=== PATIENT | female | born 1985 | race Caucasian/White ===

== ENCOUNTER → 2016-10-09 | Outpatient (REF) | payer BC | LOC: M LAB REF 12:46 | PROVIDERS: ATTEND Physician Assistant Medical | DX: N75.0 Cyst of Bartholin's gland (principal) ==

== ENCOUNTER → 2016-11-14 | Outpatient (REF) | payer BC | LOC: M SFHCWAGY 14:35 | PROVIDERS: ATTEND Nurse Practitioner Family | DX: Z12.4 Encounter for screening for malignant neoplasm of cervix (principal) ==

== ENCOUNTER → 2016-11-21 | Outpatient (CLI) | payer BC ==
--- NOTE | 2016-11-21 12:41 | REP ---
PELVIC SONOGRAPHY: HISTORY: Abnormal menstrual bleeding. Positive family history of malignancy. FINDINGS: Uterine dimensions are 8.7 x 3.5 x 4.9 cm. Endometrial echo is 1.3 cm thick and centrally placed. No focal uterine mass is seen. Normal ovaries are seen bilaterally. Right ovary measures 2.8 x 2.2 x 2.9 cm. Left ovary measures 2.9 x 1.9 x 2.9 cm. Doppler flow is normal in both ovaries. Resistive indices are 0.48 and 0.39 on the right and left, respectively. IMPRESSION: Normal pelvic sonography. Signed by Pankaj Muñiz MD 11/21/2016 04:46 P
== END ==
LOC: M RAD 09:48
PROVIDERS: ATTEND Nurse Practitioner Family
DX: N92.0 Excessive and frequent menstruation with regular cycle (principal); N94.6 Dysmenorrhea, unspecified

== ENCOUNTER → 2016-12-13 | Outpatient (REF) | payer BC | LOC: M LAB REF 20:24 | PROVIDERS: ATTEND Physician Assistant | DX: J02.9 Acute pharyngitis, unspecified (principal) ==

== ENCOUNTER 2017-01-07 10:09 | Emergency (ER) | payer OTHER, BC ==
[~2017-01-07] VITALS: Ht 160 cm; Wt 70.3 kg
[2017-01-07 10:47] VITALS: BP 162/100
--- NOTE | 2017-01-07 11:56 | REP ---
Pain after trauma. COMPARISON: 11/05/2009 FINDINGS: The joint spaces are symmetric and relatively well maintained. There is no evidence of acute fracture or destructive osseous lesion. IMPRESSION: Negative. The plantar calcaneal heel spur seen previously has gotten larger and three is a newly developed retrocalcaneal heel spur. Signed by Gabe Stoner DO 01/07/2017 12:04 P
== END 2017-01-07 12:04 | disposition home or self-care (01) ==
LOC: M ED 10:44
DX: S93.602A Unspecified sprain of left foot, initial encounter (principal); W19.XXXA Unspecified fall, initial encounter; Y92.89 Other specified places as the place of occurrence of the external cause; Y93.89 Activity, other specified; Y99.0 Civilian activity done for income or pay; G43.909 Migraine, unspecified, not intractable, without status migrainosus; Z88.5 Allergy status to narcotic agent; Z88.8 Allergy status to other drugs, medicaments and biological substances; Z91.040 Latex allergy status; L23.89 Allergic contact dermatitis due to other agents; F17.210 Nicotine dependence, cigarettes, uncomplicated

== ENCOUNTER 2017-04-20 15:43 | Emergency (ER) | payer BC, OTHER ==
[~2017-04-20] VITALS: Ht 160 cm; Wt 81.7 kg
[2017-04-20 16:27] LABS: BASO % 0.5 % (0.0-1.0); EOS # 0.2 K/mm3 (0.0-0.50); EOS % 2.3 % (0.0-3.0); LARGE UNSTAINED CELL # 0.1 K/mm3 (0.0-0.4); LARGE UNSTAINED CELL % 1.1 % (0.0-4.0); LYMPH # 2.8 K/mm3 (1.5-4.5); LYMPH % 25.7 % (24.0-44.0); MEAN CORPUSCULAR HEMOGLOBIN 35.9 pg (27.0-33.0); MEAN CORPUSCULAR HGB CONC 34.6 g/dl (32.0-36.5); MEAN CORPUSCULAR VOLUME 103.6 fl (80.0-96.0); MONO # 0.6 K/mm3 (0.0-0.8); MONO % 5.9 % (0.0-5.0); NEUTROPHILS # 6.8 K/mm3 (1.8-7.7); NEUTROPHILS % 64.4 % (36.0-66.0); PLATELET COUNT, AUTOMATED 230 k/mm3 (150-450); RED CELL DISTRIBUTION WIDTH 14.1 % (11.5-14.5); WHITE BLOOD COUNT 10.6 K/mm3 (4.0-10.0)
[2017-04-20 16:42] LABS: ANION GAP 8 MEQ/L (8-16); BLOOD UREA NITROGEN 14 MG/DL (7-18); CALCIUM LEVEL 8.9 MG/DL (8.5-10.1); CARBON DIOXIDE LEVEL 27 MEQ/L (21-32); CHLORIDE LEVEL 105 MEQ/L (98-107); CREATININE FOR GFR 0.81 MG/DL (0.55-1.02); GLOMERULAR FILTRATION RATE > 60.0 (>60); GLUCOSE, FASTING 86 MG/DL (70-105); POTASSIUM SERUM 3.9 MEQ/L (3.5-5.1); SODIUM LEVEL 140 MEQ/L (136-145)
[2017-04-20] MEDS ORDERED: hydrALAZINE INJ 20 MG/ML VIAL IV ONE (17:00)
[2017-04-20 17:06] VITALS: BP 166/90
--- NOTE | 2017-04-20 18:04 | REP ---
Chest, PA and lateral: 04/20/2047. Comparison: 01/18/2015. Clinical history: Hypertension, chest pressure. Findings: Two-view show the lung rivero well inflated without infiltrate, effusion, atelectasis or mass. Heart, mediastinal, and hilar contours unremarkable. The aorta and airway intact. Bony thorax shows no focal lesion. There is no free air under the diaphragm. Impression: 1. No acute cardiopulmonary change. Signed by Landon Varela MD 04/20/2017 09:26 P
--- NOTE | 2017-04-20 18:44 | ECGEPIP ---
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
[2017-04-20] MEDS ORDERED: HYDR25TAB PO (18:59)
[2017-04-20 19:05] VITALS: BP 170/97
== END 2017-04-20 19:13 | disposition home or self-care (01) ==
LOC: M ED 15:43
DX: I10 Essential (primary) hypertension (principal); Z72.0 Tobacco use

== ENCOUNTER → 2017-05-20 | Outpatient (REF) | payer BC ==
[~2017-05-20] MED LIST: HYDR25TAB PO
== END ==
LOC: M SFHCCLAY 06:15
PROVIDERS: ATTEND Nurse Practitioner Family
DX: R19.7 Diarrhea, unspecified (principal)

== ENCOUNTER → 2017-05-28 | Outpatient (REF) | payer BC ==
[2017-05-28 14:23] LABS: ANION GAP 9 MEQ/L (8-16); BLOOD UREA NITROGEN 10 MG/DL (7-18); CALCIUM LEVEL 8.8 MG/DL (8.5-10.1); CARBON DIOXIDE LEVEL 30 MEQ/L (21-32); CHLORIDE LEVEL 101 MEQ/L (98-107); CHOLESTEROL LEVEL 187 MG/DL (<200); CREATININE FOR GFR 0.68 MG/DL (0.55-1.02); GLOMERULAR FILTRATION RATE > 60.0 (>60); GLUCOSE, FASTING 106 MG/DL (70-105); POTASSIUM SERUM 3.2 MEQ/L (3.5-5.1); SODIUM LEVEL 140 MEQ/L (136-145); TRIGLYCERIDES LEVEL 73 MG/DL (<150)
== END ==
LOC: M SFHCCLAY 08:47
PROVIDERS: ATTEND Nurse Practitioner Family
DX: I10 Essential (primary) hypertension (principal)

== ENCOUNTER → 2017-05-31 | Outpatient (REF) | payer BC | LOC: M SFHCCLAY 08:58 | PROVIDERS: ATTEND Nurse Practitioner Family | DX: R19.7 Diarrhea, unspecified (principal) ==

== ENCOUNTER → 2017-06-12 | Outpatient (CLI) | payer BC | LOC: M LAB 06:16 | PROVIDERS: ATTEND Nurse Practitioner Family | DX: I10 Essential (primary) hypertension (principal) ==

== ENCOUNTER → 2017-11-19 | Outpatient (CLI) | payer BC ==
[2017-11-19 08:28] LABS: CHOLESTEROL LEVEL 207 MG/DL (<200); CHOLESTEROL RISK RATIO 2.957 (<5); HDL CHOLESTEROL 70 MG/DL (>40); LDL CHOLESTEROL 120.4 MG/DL (<100); NON-HDL-C 137 MG/DL; TRIGLYCERIDES LEVEL 83 MG/DL (<150)
[2017-11-19 09:46] LABS: TOTAL 25(OH) VITAMIN D 38.1 NG/ML (30.0-100.0)
== END ==
LOC: M LAB 07:29
DX: E78.5 Hyperlipidemia, unspecified (principal)

== ENCOUNTER 2017-11-24 08:31 | Emergency (ER) | payer BC ==
[2017-11-24] MEDS: KETOROLAC 30 MG/ML VIAL (J1885) IV (09:39)
[2017-11-24 09:45] LABS: BASO % 0.3 % (0.0-1.0); EOS # 0.1 10^3/uL (0.0-0.50); EOS % 0.9 % (0.0-3.0); HEMATOCRIT 36.1 % (36.0-47.0); HEMOGLOBIN 12.7 g/dl (12.0-16.0); IMMATURE GRANULOCYTE % 0.4 % (0-3.0); LYMPH # 1.4 10^3/uL (1.5-4.5); LYMPH % 11.7 % (24.0-44.0); MEAN CORPUSCULAR HEMOGLOBIN 33.8 pg (27.0-33.0); MEAN CORPUSCULAR HGB CONC 35.2 g/dl (32.0-36.5); MONO # 0.6 10^3/uL (0.0-0.8); MONO % 4.6 % (0.0-5.0); NEUTROPHILS # 9.8 10^3/uL (1.8-7.7); NEUTROPHILS % 82.1 % (36.0-66.0); PLATELET COUNT, AUTOMATED 269 10^3/uL (150-450); RED BLOOD COUNT 3.76 10^6/uL (4.00-5.40); RED CELL DISTRIBUTION WIDTH 12.4 % (11.5-14.5); WHITE BLOOD COUNT 11.9 10^3/uL (4.0-10.0)
[2017-11-24 10:01] LABS: ALBUMIN 3.6 GM/DL (3.2-5.2); ALBUMIN/GLOBULIN RATIO 1.16 (1.00-1.93); ALKALINE PHOSPHATASE 41 U/L (45-117); ALT/SGPT 22 U/L (12-78); ANION GAP 5 MEQ/L (8-16); AST/SGOT 15 U/L (7-37); BILIRUBIN,TOTAL 0.5 MG/DL (0.2-1.0); BLOOD UREA NITROGEN 12 MG/DL (7-18); CALCIUM LEVEL 8.6 MG/DL (8.5-10.1); CARBON DIOXIDE LEVEL 28 MEQ/L (21-32); CHLORIDE LEVEL 110 MEQ/L (98-107); CREATININE FOR GFR 0.65 MG/DL (0.55-1.30); GLOMERULAR FILTRATION RATE > 60.0 (>60); GLUCOSE, FASTING 105 MG/DL (70-100); LIPASE 136 U/L (73-393); POTASSIUM SERUM 3.7 MEQ/L (3.5-5.1); SODIUM LEVEL 143 MEQ/L (136-145); TOTAL PROTEIN 6.7 GM/DL (6.4-8.2)
[2017-11-24 10:50] LABS: KETONE, URINE AUTO RFX NEGATIVE (NEGATIVE); LEUKOCYTE ESTERASE UR AUTO RFX NEGATIVE (NEGATIVE); MUCUS, URINE RFX SMALL (NEGATIVE); NITRITE, URINE AUTO RFX NEGATIVE (NEGATIVE); RBC, URINE AUTO RFX 136 /HPF (0-3); SPECIFIC GRAVITY UR AUTO RFX 1.017 (1.002-1.035); SQUAM EPITHELIAL CELL UR AURFX 3 /HPF (0-6); WBC, URINE AUTO RFX 2 /HPF (0-3)
== END 2017-11-24 10:52 | disposition home or self-care (01) ==
LOC: M ED 08:31
DX: R10.9 Unspecified abdominal pain (principal); I10 Essential (primary) hypertension; Z88.8 Allergy status to other drugs, medicaments and biological substances; Z88.5 Allergy status to narcotic agent; Z91.040 Latex allergy status; Z91.048 Other nonmedicinal substance allergy status; Z84.1 Family history of disorders of kidney and ureter; Z98.890 Other specified postprocedural states; Z86.69 Personal history of other diseases of the nervous system and sense organs
CPT/HCPCS: J1885

== ENCOUNTER → 2017-11-27 | Outpatient (REF) | payer BC ==
[2017-12-02 14:16] LABS: HPV HYBRID CAPTURE II Negative (Negative)
== END ==
LOC: M SFHCWAGY 11:14
DX: Z12.4 Encounter for screening for malignant neoplasm of cervix (principal)
CPT/HCPCS: G0123

== ENCOUNTER → 2017-12-09 | Outpatient (REF) | payer BC | LOC: M SFHCCLAY 16:34 | DX: R19.7 Diarrhea, unspecified (principal) | CPT/HCPCS: 87507 ==

== ENCOUNTER → 2017-12-24 | Outpatient (CLI) | payer BC ==
[2017-12-26 08:06] LABS: G6PD2 4.16 x10E6/uL (3.77-5.28); G6PD3 258 (146-376)
== END ==
LOC: M LAB 12:10
DX: M05.79 Rheumatoid arthritis with rheumatoid factor of multiple sites without organ or systems involvement (principal)
CPT/HCPCS: 82955

== ENCOUNTER 2018-02-08 12:56 | Emergency (ER) | payer BC ==
[2018-02-08 13:49] LABS: BASO # 0.1 10^3/uL (0.0-0.2); BASO % 0.6 % (0.0-1.0); EOS # 0.2 10^3/uL (0.0-0.50); HEMATOCRIT 40.7 % (36.0-47.0); HEMOGLOBIN 14.4 g/dl (12.0-15.5); IMMATURE GRANULOCYTE % 0.2 % (0-3.0); LYMPH # 3.3 10^3/uL (1.5-4.5); LYMPH % 27.8 % (24.0-44.0); MEAN CORPUSCULAR HEMOGLOBIN 34.5 pg (27.0-33.0); MEAN CORPUSCULAR HGB CONC 35.4 g/dl (32.0-36.5); MEAN CORPUSCULAR VOLUME 97.6 fl (80.0-96.0); MONO # 0.8 10^3/uL (0.0-0.8); MONO % 6.9 % (0.0-5.0); NEUTROPHILS # 7.5 10^3/uL (1.8-7.7); NEUTROPHILS % 62.5 % (36.0-66.0); PLATELET COUNT, AUTOMATED 260 10^3/uL (150-450); RED BLOOD COUNT 4.17 10^6/uL (4.00-5.40); RED CELL DISTRIBUTION WIDTH 12.8 % (11.5-14.5); WHITE BLOOD COUNT 11.9 10^3/uL (4.0-10.0)
[2018-02-08 14:00] LABS: CONTROL LINE UCG INT CTR LINE PRESENT; URINE PREG TEST NEGATIVE (NEGATIVE)
[2018-02-08 14:11] LABS: AMORPHOUS SEDIMENT RFX SMALL (NEGATIVE); KETONE, URINE AUTO RFX TRACE mg/dL (NEGATIVE); LEUKOCYTE ESTERASE UR AUTO RFX NEGATIVE (NEGATIVE); MUCUS, URINE RFX LARGE (NEGATIVE); NITRITE, URINE AUTO RFX NEGATIVE (NEGATIVE); RBC, URINE AUTO RFX 5 /HPF (0-3); SQUAM EPITHELIAL CELL UR AURFX 5 /HPF (0-6); WBC, URINE AUTO RFX 0 /HPF (0-3)
[2018-02-08 14:20] LABS: ALBUMIN 4.2 GM/DL (3.2-5.2); ALBUMIN/GLOBULIN RATIO 1.27 (1.00-1.93); ALKALINE PHOSPHATASE 46 U/L (45-117); ALT/SGPT 23 U/L (12-78); AMYLASE 43 U/L (25-115); ANION GAP 8 MEQ/L (8-16); AST/SGOT 14 U/L (7-37); BILIRUBIN,DIRECT 0.2 MG/DL (0.0-0.2); BILIRUBIN,TOTAL 0.6 MG/DL (0.2-1.0); BLOOD UREA NITROGEN 10 MG/DL (7-18); CALCIUM LEVEL 8.7 MG/DL (8.5-10.1); CARBON DIOXIDE LEVEL 27 MEQ/L (21-32); CHLORIDE LEVEL 107 MEQ/L (98-107); CREATININE FOR GFR 0.82 MG/DL (0.55-1.30); GLOMERULAR FILTRATION RATE > 60.0 (>60); GLUCOSE, FASTING 90 MG/DL (70-100); LIPASE 172 U/L (73-393); POTASSIUM SERUM 3.6 MEQ/L (3.5-5.1); SODIUM LEVEL 142 MEQ/L (136-145); TOTAL PROTEIN 7.5 GM/DL (6.4-8.2)
[2018-02-08] MEDS: NS 500 ML IV (16:45)
[2018-02-08] MEDS: KETOROLAC 30 MG/ML VIAL (J1885) IV (16:45)
[2018-02-08] MEDS: ONDANSETRON 4MG/2ML VIAL (J2405) IV (16:46)
== END 2018-02-08 17:47 | disposition home or self-care (01) ==
LOC: M ED 12:56
DX: R10.30 Lower abdominal pain, unspecified (principal); R11.0 Nausea; I10 Essential (primary) hypertension; J45.909 Unspecified asthma, uncomplicated; F33.9 Major depressive disorder, recurrent, unspecified; Z87.442 Personal history of urinary calculi; Z79.899 Other long term (current) drug therapy; Z88.5 Allergy status to narcotic agent; Z91.040 Latex allergy status; Z91.048 Other nonmedicinal substance allergy status; F17.210 Nicotine dependence, cigarettes, uncomplicated
CPT/HCPCS: J2405

== ENCOUNTER 2018-08-09 08:45 | Emergency (ER) | payer BC | END 2018-08-09 10:20 | disposition home or self-care (01) | LOC: M ED 08:45 | DX: I10 Essential (primary) hypertension (principal); J45.909 Unspecified asthma, uncomplicated | CPT/HCPCS: 93005 ==

== ENCOUNTER → 2018-09-06 | Outpatient (CLI) | payer BC ==
[~2018-09-06] MED LIST changes: +BACT800T5 PO; +KETO10TAB PO; +NABU-119 PO; +PYRI1TAB5 PO; +RIZA10TA2 PO; +SULF50TA; +TELM1TAB PO; +VICO5TAB16 PO; +VITAMIN D2; +ZOFR4TAB14 PO
[2018-09-06 07:23] LABS: HEMATOCRIT 39.2 % (36.0-47.0); HEMOGLOBIN 13.9 g/dl (12.0-15.5); MEAN CORPUSCULAR HEMOGLOBIN 34.2 pg (27.0-33.0); MEAN CORPUSCULAR HGB CONC 35.5 g/dl (32.0-36.5); MEAN CORPUSCULAR VOLUME 96.3 fl (80.0-96.0); PLATELET COUNT, AUTOMATED 288 10^3/uL (150-450); RED BLOOD COUNT 4.07 10^6/uL (4.00-5.40); WHITE BLOOD COUNT 10.2 10^3/uL (4.0-10.0)
[2018-09-06 07:54] LABS: ALBUMIN 3.9 GM/DL (3.2-5.2); ALT/SGPT 28 U/L (12-78); BILIRUBIN,TOTAL 0.4 MG/DL (0.2-1.0); BLOOD UREA NITROGEN 7 MG/DL (7-18); CALCIUM LEVEL 8.4 MG/DL (8.5-10.1); CARBON DIOXIDE LEVEL 30 MEQ/L (21-32); CHLORIDE LEVEL 103 MEQ/L (98-107); CHOLESTEROL LEVEL 179 MG/DL (<200); CHOLESTEROL RISK RATIO 1.924 (<5); GLOMERULAR FILTRATION RATE > 60.0 (>60); GLUCOSE, FASTING 106 MG/DL (70-100); HDL CHOLESTEROL 93 MG/DL (>40); LDL CHOLESTEROL 70 MG/DL (<100); NON-HDL-C 86 MG/DL; POTASSIUM SERUM 3.5 MEQ/L (3.5-5.1); SODIUM LEVEL 140 MEQ/L (136-145); TRIGLYCERIDES LEVEL 82 MG/DL (<150)
[2018-09-06 10:52] LABS: TOTAL 25(OH) VITAMIN D 19.4 NG/ML (30.0-100.0)
== END ==
LOC: M LAB 06:29
PROVIDERS: ATTEND Nurse Practitioner Family
DX: I10 Essential (primary) hypertension (principal); E78.5 Hyperlipidemia, unspecified; E55.9 Vitamin D deficiency, unspecified

== ENCOUNTER → 2018-12-08 | Outpatient (REF) | payer BC ==
[2018-12-08 18:04] LABS: INFLUENZA A AMPLIFICATION NEGATIVE (NEGATIVE); INFLUENZA B AMPLIFICATION NEGATIVE (NEGATIVE)
== END ==
LOC: M LAB REF 17:18
PROVIDERS: ATTEND Physician Assistant
DX: J11.1 Influenza due to unidentified influenza virus with other respiratory manifestations (principal)

== ENCOUNTER → 2018-12-29 | Outpatient (CLI) | payer BC ==
[~2018-12-29] MED LIST changes: -VICO5TAB16 PO; +VICO5TAB17 PO
[2018-12-29 12:08] LABS: BASO % 0.3 % (0.0-1.0); EOS # 0.1 10^3/uL (0.0-0.50); EOS % 1.1 % (0.0-3.0); HEMATOCRIT 38.9 % (36.0-47.0); HEMOGLOBIN 13.6 g/dl (12.0-15.5); LYMPH # 2.7 10^3/uL (1.5-4.5); LYMPH % 25.5 % (24.0-44.0); MEAN CORPUSCULAR HEMOGLOBIN 36.5 pg (27.0-33.0); MEAN CORPUSCULAR VOLUME 104.3 fl (80.0-96.0); MONO # 0.7 10^3/uL (0.0-0.8); MONO % 6.8 % (0.0-5.0); NEUTROPHILS % 65.8 % (36.0-66.0); PLATELET COUNT, AUTOMATED 254 10^3/uL (150-450); RED BLOOD COUNT 3.73 10^6/uL (4.00-5.40); WHITE BLOOD COUNT 10.6 10^3/uL (4.0-10.0)
[2018-12-29 12:45] LABS: ALT/SGPT 29 U/L (12-78); C REACTIVE PROTEIN QUANTITATIV < 0.30 MG/DL (0.00-0.30); CREATININE FOR GFR 0.62 MG/DL (0.55-1.30); ERYTHROCYTE SEDIMENTATION RATE 8 mm/hr (0-20); GLOMERULAR FILTRATION RATE > 60.0 (>60)
== END ==
LOC: M LAB 11:38
PROVIDERS: ATTEND Nurse Practitioner
DX: M05.79 Rheumatoid arthritis with rheumatoid factor of multiple sites without organ or systems involvement (principal); Z79.899 Other long term (current) drug therapy

== ENCOUNTER → 2019-01-19 | Outpatient (CLI) | payer BC ==
[2019-01-19 08:52] LABS: BASO # 0.1 10^3/uL (0.0-0.2); BASO % 0.7 % (0.0-1.0); EOS # 0.3 10^3/uL (0.0-0.50); EOS % 3.2 % (0.0-3.0); HEMOGLOBIN 13.6 g/dl (12.0-15.5); LYMPH # 1.7 10^3/uL (1.5-4.5); LYMPH % 19.6 % (24.0-44.0); MEAN CORPUSCULAR HEMOGLOBIN 35.6 pg (27.0-33.0); MEAN CORPUSCULAR HGB CONC 34.9 g/dl (32.0-36.5); MEAN CORPUSCULAR VOLUME 102.1 fl (80.0-96.0); MONO # 0.6 10^3/uL (0.0-0.8); MONO % 6.8 % (0.0-5.0); NEUTROPHILS # 6.1 10^3/uL (1.8-7.7); NEUTROPHILS % 69.2 % (36.0-66.0); PLATELET COUNT, AUTOMATED 288 10^3/uL (150-450); RED BLOOD COUNT 3.82 10^6/uL (4.00-5.40); WHITE BLOOD COUNT 8.7 10^3/uL (4.0-10.0)
[2019-01-19 09:16] LABS: ALT/SGPT 37 U/L (12-78); C REACTIVE PROTEIN QUANTITATIV < 0.30 MG/DL (0.00-0.30); CREATININE FOR GFR 0.68 MG/DL (0.55-1.30); GLOMERULAR FILTRATION RATE > 60.0 (>60)
[2019-01-19 09:59] LABS: ERYTHROCYTE SEDIMENTATION RATE 5 mm/hr (0-20)
== END ==
LOC: M LAB 07:59
PROVIDERS: ATTEND Nurse Practitioner
DX: M05.79 Rheumatoid arthritis with rheumatoid factor of multiple sites without organ or systems involvement (principal); Z79.899 Other long term (current) drug therapy

== ENCOUNTER 2019-02-04 16:01 | Emergency (ER) | payer BC, OTHER ==
[~2019-02-04] VITALS: Ht 160 cm; Wt 72.3 kg
[2019-02-04] MEDS ORDERED: LORA0.5T11 PO (16:14)
[2019-02-04] MEDS ORDERED: AZAT50TA2 PO (16:14)
[2019-02-04 17:32] VITALS: BP 172/99
--- NOTE | 2019-02-05 07:37 | REP ---
Pain after trauma. PRIORS: None. FINDINGS: No acute fracture or destructive osseous lesion. The mortise is intact. Electronically Signed by Gabe Stoner DO 02/05/2019 08:29 A
--- NOTE | 2019-02-05 07:39 | REP ---
Pain after trauma. PRIOR: 11/05/2009. There is a high arch status quo. There is a plantar calcaneal heel spur which has increased in size and there is a newly developed retrocalcaneal heel spur. There is no acute fracture. IMPRESSION: Chronic changes. Electronically Signed by Gabe Stoner DO 02/05/2019 08:29 A
== END 2019-02-04 17:50 | disposition home or self-care (01) ==
LOC: M ED 16:01
DX: S90.32XA Contusion of left foot, initial encounter (principal); S60.212A Contusion of left wrist, initial encounter; W22.8XXA Striking against or struck by other objects, initial encounter; Y92.238 Other place in hospital as the place of occurrence of the external cause; Y93.9 Activity, unspecified; Y99.0 Civilian activity done for income or pay; I10 Essential (primary) hypertension; G43.909 Migraine, unspecified, not intractable, without status migrainosus; J45.909 Unspecified asthma, uncomplicated; M77.32 Calcaneal spur, left foot; Z79.899 Other long term (current) drug therapy; Z91.040 Latex allergy status; Z88.5 Allergy status to narcotic agent; Z88.2 Allergy status to sulfonamides

== ENCOUNTER 2019-02-27 09:06 | Emergency (ER) | payer OTHER, BC ==
[~2019-02-27] VITALS: Ht 160 cm; Wt 73.2 kg
[~2019-02-27 09:06] MED LIST changes: +AZAT50TA2 PO; +LORA0.5T11 PO
[2019-02-27 09:07] VITALS: BP 135/91
== END 2019-02-27 09:48 | disposition home or self-care (01) ==
LOC: M ED 09:06
DX: M65.872 Other synovitis and tenosynovitis, left ankle and foot (principal); I10 Essential (primary) hypertension; G43.909 Migraine, unspecified, not intractable, without status migrainosus; J45.909 Unspecified asthma, uncomplicated; M06.9 Rheumatoid arthritis, unspecified; Z79.899 Other long term (current) drug therapy; Z91.040 Latex allergy status; Z88.5 Allergy status to narcotic agent; Z91.89 Other specified personal risk factors, not elsewhere classified

== ENCOUNTER → 2019-06-20 | Outpatient (CLI) | payer BC ==
[~2019-06-20] MED LIST changes: +LOSA50TA88 PO
[2019-06-20 09:22] LABS: BLOOD UREA NITROGEN 13 MG/DL (7-18); GLOMERULAR FILTRATION RATE > 60.0 (>60)
== END ==
LOC: M LAB 07:56
PROVIDERS: ATTEND Podiatrist Foot & Ankle Surgery
DX: R22.42 Localized swelling, mass and lump, left lower limb (principal)

== ENCOUNTER → 2019-06-22 | Outpatient (CLI) | payer BC ==
[~2019-06-22] MED LIST changes: +PROHANCE 279.3MG/ML 15ML VIAL (A9576) As Ordered ONE
--- NOTE | 2019-06-23 09:48 | REP ---
MRI LEFT FOOT WITH AND WITHOUT CONTRAST: HISTORY: Palpable lump dorsum of midfoot. Area is marked with skin markers. Multiple sequences are obtained in the axial, coronal, and sagittal planes prior to and following the intravenous administration of 14.4 mL ProHance. There is mild marrow edema in the proximal lateral aspect of the medial cuneiform bone. No other abnormal marrow signal is seen in the osseous structures of the left foot. There is no occult fracture. Achilles tendon and plantar tendon demonstrate no abnormal signal. Other tendinous structures including the flexor and extensor tendons appear intact without evidence of significant tenosynovitis. There is mild scattered joint fluid throughout the hindfoot and midfoot joints. At the site of the palpable lump at the dorsum of the foot, dorsal to the cuneiform bones, there is a small amount of fluid between the dorsal surface of the cuneiform bones and the adjacent extensor tendons. There is mild linear enhancement of this area following the intravenous administration of gadolinium. Findings suggesting mild synovitis. There is no cystic or enhancing mass at that location. No other abnormalities are seen. IMPRESSION: At the site of the palpable lump in the dorsal mid foot there is underlying mild fluid along the dorsal surface of the cuneiform bones, primarily the medial cuneiform, with mild linear enhancement in this region suggesting mild synovitis. No discrete mass is seen. There is mild scattered intertarsal joint fluid. There is mild subchondral marrow edema in the base of the medial cuneiform representing early arthritic or stress related changes. Electronically Signed by Cecil Galarza MD 06/23/2019 05:49 P
== END ==
LOC: M RAD 16:43
PROVIDERS: ATTEND Podiatrist Foot & Ankle Surgery
DX: M25.471 Effusion, right ankle (principal)
CPT/HCPCS: 73720; A9576

== ENCOUNTER 2019-06-24 09:42 | Emergency (ER) | payer BC ==
[~2019-06-24] VITALS: Ht 160 cm; Wt 75.3 kg
[~2019-06-24 09:42] MED LIST changes: -LOSA50TA88 PO; -PROHANCE 279.3MG/ML 15ML VIAL (A9576) As Ordered ONE
[2019-06-24 10:25] LABS: BASO # 0.1 10^3/uL (0.0-0.2); BASO % 0.4 % (0.0-1.0); EOS # 0.2 10^3/uL (0.0-0.5); EOS % 1.4 % (0.0-3.0); HEMATOCRIT 41.2 % (36.0-47.0); HEMOGLOBIN 14.7 g/dl (12.0-15.5); LYMPH # 2.1 10^3/uL (1.5-5.0); LYMPH % 18.3 % (24.0-44.0); MEAN CORPUSCULAR HEMOGLOBIN 36.5 pg (27.0-33.0); MEAN CORPUSCULAR HGB CONC 35.7 g/dl (32.0-36.5); MEAN CORPUSCULAR VOLUME 102.2 fl (80.0-96.0); MONO # 0.6 10^3/uL (0.0-0.8); MONO % 5.2 % (0.0-5.0); NEUTROPHILS # 8.7 10^3/uL (1.5-8.5); NEUTROPHILS % 74.4 % (36.0-66.0); PLATELET COUNT, AUTOMATED 274 10^3/uL (150-450); RED BLOOD COUNT 4.03 10^6/uL (4.00-5.40); WHITE BLOOD COUNT 11.7 10^3/uL (4.0-10.0)
--- NOTE | 2019-06-24 10:38 | REP ---
CHEST, SINGLE VIEW: There is no evidence of acute infiltrate. No pleural effusion is seen. The heart is normal in size. The mediastinal silhouette is unremarkable. The visualized osseous structures are intact. IMPRESSION: No acute pulmonary disease. Electronically Signed by Cecil Galarza MD 06/27/2019 02:47 P
[2019-06-24 10:52] LABS: BLOOD UREA NITROGEN 10 MG/DL (7-18); CARBON DIOXIDE LEVEL 31 MEQ/L (21-32); CHLORIDE LEVEL 105 MEQ/L (98-107); CK-MB VALUE MASS < 1.0 NG/ML (<3.6); CPK CREATINE PHOSPHOKINASE 126 U/L (26-192); CREATININE FOR GFR 0.75 MG/DL (0.55-1.30); GLOMERULAR FILTRATION RATE > 60.0 (>60); GLUCOSE, FASTING 103 MG/DL (70-100); MB/CK RELATIVE INDEX 0.79 (< OR =4); POTASSIUM SERUM 3.6 MEQ/L (3.5-5.1); SODIUM LEVEL 141 MEQ/L (136-145); TROPONIN I 0.02 NG/ML (< 0.10)
[2019-06-24] MEDS ORDERED: LOSA50TA88 PO (14:32)
[2019-06-24 14:43] VITALS: BP 162/103
[2019-06-24] MEDS ORDERED: ACETAMINOPHEN 325 MG TAB PO ONE (14:45)
[2019-06-24] MEDS ORDERED: LOSARTAN 50 MG TAB PO ONE (14:45)
[2019-06-24 16:12] LABS: CK-MB VALUE MASS < 1.0 NG/ML (<3.6); CPK CREATINE PHOSPHOKINASE 122 U/L (26-192); MB/CK RELATIVE INDEX 0.82 (< OR =4); TROPONIN I < 0.02 NG/ML (< 0.10)
[2019-06-24 16:30] VITALS: BP 163/96
--- NOTE | 2019-06-26 07:57 | ECGEPIP ---
[facility] - ED Test Date: 2019-06-24 Pat Name: AYAZ SHI Department: Room: - Gender: Female Hander In: KRISTIAN : 1985 Requested By: Shima Hurtado Order Number: [id number] Reading MD: Shima Hurtado Measurements Intervals [place] Rate: 56 P: -6 [place]: 173 QRS: -21 QRSD: 96 T: -7 QT: 422 QTc: 408 Interpretive Statements SINUS BRADYCARDIA BORDERLINE LEFT AXIS DEVIATION VOLTAGE CRITERIA FOR LVH NSTTW abnormalities COMPARED 08/09/18 Electronically Signed on 06-26-2019 7:57:17 EDT by Shima Hurtado
--- NOTE | 2019-06-26 08:01 | ECGEPIP ---
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
== END 2019-06-24 17:08 | disposition home or self-care (01) ==
LOC: M ED 09:42
DX: R00.1 Bradycardia, unspecified (principal); I10 Essential (primary) hypertension; M06.9 Rheumatoid arthritis, unspecified; F41.0 Panic disorder [episodic paroxysmal anxiety]; F17.200 Nicotine dependence, unspecified, uncomplicated; Z82.49 Family history of ischemic heart disease and other diseases of the circulatory system; Z80.9 Family history of malignant neoplasm, unspecified; Z79.899 Other long term (current) drug therapy; Z88.2 Allergy status to sulfonamides; Z88.5 Allergy status to narcotic agent; Z88.8 Allergy status to other drugs, medicaments and biological substances; Z91.89 Other specified personal risk factors, not elsewhere classified; Z91.040 Latex allergy status

== ENCOUNTER 2019-07-22 07:54 | Outpatient (CLI) | payer BC ==
[~2019-07-22] VITALS: Ht 160 cm; Wt 73.5 kg
[~2019-07-22 07:54] MED LIST changes: +LOSA50TA88 PO
[2019-07-22 14:00] VITALS: BP 141/88
[2019-07-22] MEDS ORDERED: CHOL100029 PO (14:27)
[2019-07-22] MEDS ORDERED: INFLIXIMAB BIOSIMILAR 300 MG in NS 220 ML IV ONE (15:00)
[2019-07-22] MEDS ORDERED: NS 1,000 ML IV SCH (15:00)
[2019-07-22] MEDS ORDERED: ACETAMINOPHEN 650MG PO PRIOR TO INFUSION PO ONE (15:00)
[2019-07-22] MEDS ORDERED: FILTER 1.2 MICRON (ADULT TPN/MANNITOL/REMICADE) XX ONE (15:00)
[2019-07-22 17:00] VITALS: BP 136/74
== END 2019-07-22 17:00 | disposition home or self-care (01) ==
LOC: M INFU 07:54
PROVIDERS: ATTEND Nurse Practitioner
DX: M06.9 Rheumatoid arthritis, unspecified (principal); Z88.8 Allergy status to other drugs, medicaments and biological substances; Z88.5 Allergy status to narcotic agent; Z88.2 Allergy status to sulfonamides; Z91.040 Latex allergy status

== ENCOUNTER 2019-08-05 09:23 | Outpatient (CLI) | payer BC ==
[~2019-08-05] VITALS: Ht 160 cm; Wt 73.5 kg
[~2019-08-05 09:23] MED LIST changes: +CHOL100029 PO
[2019-08-05 14:00] VITALS: BP 166/97
[2019-08-05] MEDS ORDERED: INFLIXIMAB BIOSIMILAR 300 MG in NS 220 ML IV ONE (15:00)
[2019-08-05] MEDS ORDERED: FILTER 1.2 MICRON (ADULT TPN/MANNITOL/REMICADE) XX ONE (15:00)
[2019-08-05] MEDS ORDERED: ACETAMINOPHEN 650MG PO PRIOR TO INFUSION PO ONE (15:00)
[2019-08-05] MEDS ORDERED: NS 1,000 ML IV SCH (15:00)
[2019-08-05 16:55] VITALS: BP 128/80
== END 2019-08-05 16:55 | disposition home or self-care (01) ==
LOC: M INFU 09:23
PROVIDERS: ATTEND Nurse Practitioner
DX: M06.9 Rheumatoid arthritis, unspecified (principal); Z88.5 Allergy status to narcotic agent; Z88.6 Allergy status to analgesic agent; Z88.8 Allergy status to other drugs, medicaments and biological substances; Z91.040 Latex allergy status
CPT/HCPCS: 96365; 96366; Q5103

== ENCOUNTER 2019-09-02 11:51 | Outpatient (CLI) | payer BC ==
[~2019-09-02] VITALS: Ht 160 cm; Wt 73.5 kg
[2019-09-02] MEDS ORDERED: ACETAMINOPHEN 650MG PO PRIOR TO INFUSION PO ONE (13:45)
[2019-09-02] MEDS ORDERED: NS 1,000 ML IV SCH (13:45)
[2019-09-02] MEDS ORDERED: INFLIXIMAB BIOSIMILAR 300 MG in NS 220 ML IV ONE (14:00)
[2019-09-02 16:55] VITALS: BP 158/98
== END 2019-09-02 16:55 | disposition home or self-care (01) ==
LOC: M INFU 11:51
PROVIDERS: ATTEND Nurse Practitioner
DX: M06.9 Rheumatoid arthritis, unspecified (principal); Z88.2 Allergy status to sulfonamides; Z88.5 Allergy status to narcotic agent; Z88.8 Allergy status to other drugs, medicaments and biological substances; Z91.040 Latex allergy status
CPT/HCPCS: 96413; 96415; Q5103

== ENCOUNTER 2019-09-05 08:11 | Emergency (ER) | payer OTHER, BC ==
[~2019-09-05] VITALS: Ht 160 cm; Wt 75.6 kg
[2019-09-05] MEDS ORDERED: AMLO5TAB6 (08:21)
[2019-09-05] MEDS ORDERED: FLUORESCEIN OPHTH 1 MG STRIP OD ONE (09:30)
[2019-09-05] MEDS ORDERED: TETRACAINE 0.5% OPHTH SOLN 4ML OD ONE (09:30)
[2019-09-05] MEDS ORDERED: OCUF0.25 OD (09:35)
[2019-09-05 10:10] VITALS: BP 164/113
== END 2019-09-05 10:17 | disposition home or self-care (01) ==
LOC: M ED 08:11
DX: S05.01XA Injury of conjunctiva and corneal abrasion without foreign body, right eye, initial encounter (principal); X58.XXXA Exposure to other specified factors, initial encounter; Y92.239 Unspecified place in hospital as the place of occurrence of the external cause; Y93.9 Activity, unspecified; Y99.0 Civilian activity done for income or pay; I10 Essential (primary) hypertension; G43.909 Migraine, unspecified, not intractable, without status migrainosus; J45.909 Unspecified asthma, uncomplicated; M06.9 Rheumatoid arthritis, unspecified; F32.9 Major depressive disorder, single episode, unspecified; Z79.899 Other long term (current) drug therapy; Z88.2 Allergy status to sulfonamides; Z88.5 Allergy status to narcotic agent; Z91.040 Latex allergy status; Z91.89 Other specified personal risk factors, not elsewhere classified

== ENCOUNTER 2019-10-21 07:51 | Outpatient (CLI) | payer BC ==
[~2019-10-21] VITALS: Ht 160 cm; Wt 75.5 kg
[~2019-10-21 07:51] MED LIST changes: +AMLO5TAB6; -LORA0.5T11 PO; +LORA0.5T5 PO; +OCUF0.25 OD
[2019-10-21] MEDS ORDERED: INFLIXIMAB BIOSIMILAR 300 MG in NS 220 ML IV ONE (11:45)
[2019-10-21] MEDS ORDERED: NS 1,000 ML IV SCH (11:45)
[2019-10-21] MEDS ORDERED: ACETAMINOPHEN 650MG PO PRIOR TO INFUSION PO ONE (11:45)
[2019-10-21 12:35] VITALS: BP 180/120
[2019-10-21 12:51] VITALS: BP 160/120
[2019-10-21 14:04] VITALS: BP 138/102
== END 2019-10-21 15:15 | disposition home or self-care (01) ==
LOC: M INFU 07:51
PROVIDERS: ATTEND Nurse Practitioner
DX: M06.9 Rheumatoid arthritis, unspecified (principal); Z88.2 Allergy status to sulfonamides; Z88.5 Allergy status to narcotic agent; Z91.040 Latex allergy status; Z91.048 Other nonmedicinal substance allergy status
CPT/HCPCS: 96413; 96415; Q5103

== ENCOUNTER → 2019-12-01 | Outpatient (CLI) | payer BC ==
[~2019-12-01] MED LIST changes: -TELM1TAB PO; +TELM1TAB35 PO
--- NOTE | 2019-12-01 17:37 | REP ---
Digital diagnostic bilateral mammography with CAD, 3-D tomography, and focused right breast sonography. History: Mass in the right axilla x 1-1/2 weeks. Tender. Mammographic findings: Breast parenchyma is heterogeneously dense in a pattern which may inhibit the sensitivity of mammography. A skin marker is affixed to the skin high in the axilla on the right. Normal appearing lymph nodes are visible in each axilla. No evidence of adenopathy or mass lesion is observed. No suspicious mammographic abnormality is observed. 3-D tomography imaging shows no additional abnormality. Sonographic findings: Right axillary sonography demonstrates two normal-appearing small lymph nodes in the axilla. These measure 1.3 x 0.7 x 0.8 cm and 0.9 x 0.7 x 0.3 cm. They have echogenic hilar architecture. No mass or cyst is seen in the right axilla. Impression: BIRADS category 2 benign findings. Clinical follow-up is advised. BIRADS 2: BI-RADS/ACR category 2 mammogram. Benign Findings. This mammogram was interpreted with the aid of an FDA-approved computer-aided detection system. The patient states she had a clinical breast exam in November 2019 The patient letter being requested is m# 2 dense . This patient's estimated Tyrer-Cuzick lifetime risk assessment for breast cancer is 19.1 %.
== END ==
LOC: M WHC 13:41
PROVIDERS: ATTEND Nurse Practitioner Family
DX: R22.31 Localized swelling, mass and lump, right upper limb (principal)
CPT/HCPCS: 76642; 77066; G0279

== ENCOUNTER 2019-12-02 07:29 | Outpatient (CLI) | payer BC ==
[~2019-12-02] VITALS: Ht 160 cm; Wt 75.7 kg
[2019-12-02 12:15] VITALS: BP 156/85
[2019-12-02] MEDS ORDERED: NS 1,000 ML IV SCH (12:15)
[2019-12-02] MEDS ORDERED: ACETAMINOPHEN 650MG PO PRIOR TO INFUSION PO ONE (12:30)
[2019-12-02] MEDS ORDERED: INFLIXIMAB BIOSIMILAR 300 MG in NS 220 ML IV ONE (13:00)
[2019-12-02 16:45] VITALS: BP 177/89
== END 2019-12-02 16:30 | disposition home or self-care (01) ==
LOC: M INFU 07:29
PROVIDERS: ATTEND Nurse Practitioner
DX: R06.9 Unspecified abnormalities of breathing (principal); Z88.2 Allergy status to sulfonamides; Z88.5 Allergy status to narcotic agent; Z88.8 Allergy status to other drugs, medicaments and biological substances; Z91.040 Latex allergy status; Z91.048 Other nonmedicinal substance allergy status
CPT/HCPCS: 96413; 96415; Q5103

== ENCOUNTER → 2019-12-14 | Outpatient (CLI) | payer BC ==
--- NOTE | 2019-12-14 15:10 | REP ---
Clinical: Bilateral knee pain. Technique: AP and lateral views of the right and left knee. Findings: Symmetric, normal age-related changes are appreciated. No overt osteoarthritic degenerative findings noted. No acute fracture dislocation. No obvious effusion. Impression: Symmetric age-related changes. Electronically Signed by Ang Rabago MD 12/14/2019 03:01 P
--- NOTE | 2019-12-14 15:11 | REP ---
Clinical: Knee pain. Technique: AP weightbearing view of the right and left knee. Findings: Osseous structures, joint spaces, and surrounding soft tissues are symmetric and age appropriate. No overt osteoarthritic degenerative changes are appreciated. No obvious abnormal joint space narrowing. Impression: Symmetric age appropriate examination. Electronically Signed by Ang Rabago MD 12/14/2019 03:02 P
== END ==
LOC: M RAD 14:40
PROVIDERS: ATTEND Nurse Practitioner
DX: M25.561 Pain in right knee (principal); M25.562 Pain in left knee

== ENCOUNTER → 2020-01-20 | Outpatient (CLI) | payer BC ==
[~2020-01-20] VITALS: Ht 160 cm; Wt 73.0 kg
[~2020-01-20] MED LIST changes: +ACETAMINOPHEN 650MG PO PRIOR TO INFUSION PO ONE; +INFL100I IV; +INFLIXIMAB BIOSIMILAR 500 MG in NS 200 ML IV ONE; +NS 1,000 ML IV SCH; +PRED5PAK PO
[2020-01-20 12:00] VITALS: BP 137/80
== END ==
LOC: M INFU 11:57
PROVIDERS: ATTEND Nurse Practitioner
DX: M06.9 Rheumatoid arthritis, unspecified (principal); Z88.2 Allergy status to sulfonamides; Z88.5 Allergy status to narcotic agent; Z91.040 Latex allergy status; Z91.048 Other nonmedicinal substance allergy status
CPT/HCPCS: 96413; 96415; Q5103

== ENCOUNTER → 2020-02-14 | Outpatient (REF) | payer BC ==
[~2020-02-14] MED LIST changes: -ACETAMINOPHEN 650MG PO PRIOR TO INFUSION PO ONE; -INFLIXIMAB BIOSIMILAR 500 MG in NS 200 ML IV ONE; -NS 1,000 ML IV SCH; +SULF500T41; -SULF50TA
== END ==
LOC: M LAB REF 17:17
PROVIDERS: ATTEND Dermatology
DX: D23.5 Other benign neoplasm of skin of trunk (principal)

== ENCOUNTER 2020-03-02 08:14 | Outpatient (CLI) | payer BC ==
[2020-03-02] VITALS (8 sets, daily range): BP systolic 110–138; BP diastolic 63–89
[~2020-03-02] VITALS: Ht 160 cm; Wt 73.0 kg
[2020-03-02] MEDS ORDERED: INFLIXIMAB BIOSIMILAR 500 MG in NS 200 ML IV ONE (09:00)
[2020-03-02] MEDS ORDERED: ACETAMINOPHEN 650MG PO PRIOR TO INFUSION PO ONE (09:00)
[2020-03-02] MEDS ORDERED: NS 1,000 ML IV SCH (09:00)
== END 2020-03-02 12:00 | disposition home or self-care (01) ==
LOC: M INFU 08:14
PROVIDERS: ATTEND Nurse Practitioner
DX: M06.9 Rheumatoid arthritis, unspecified (principal); Z88.2 Allergy status to sulfonamides; Z88.5 Allergy status to narcotic agent; Z88.8 Allergy status to other drugs, medicaments and biological substances; Z91.040 Latex allergy status

== ENCOUNTER → 2020-05-02 21:10 | Emergency (ER) | payer BC ==
[~2020-05-02 21:10] MED LIST changes: +AMLO1TAB24; -AMLO5TAB6; -NABU-119 PO; +NABU-53 PO; +methylPREDNISolone 125MG 2ML VIAL ONE
[2020-06-08 11:15] LABS: BASO # 0.1 10^3/uL (0.0-0.2); BASO % 0.3 % (0.0-1.0); EOS # 0.1 10^3/uL (0.0-0.5); EOS % 0.5 % (0.0-3.0); HEMATOCRIT 42.8 % (36.0-47.0); HEMOGLOBIN 15.2 g/dl (12.0-15.5); LYMPH # 3.6 10^3/uL (1.5-5.0); LYMPH % 23.8 % (24.0-44.0); MEAN CORPUSCULAR HEMOGLOBIN 36.2 pg (27.0-33.0); MEAN CORPUSCULAR HGB CONC 35.5 g/dl (32.0-36.5); MEAN CORPUSCULAR VOLUME 101.9 fl (80.0-96.0); MONO # 0.8 10^3/uL (0.0-0.8); MONO % 5.2 % (0.0-5.0); NEUTROPHILS # 10.5 10^3/uL (1.5-8.5); NEUTROPHILS % 69.7 % (36.0-66.0); PLATELET COUNT, AUTOMATED 274 10^3/uL (150-450); WHITE BLOOD COUNT 15.1 10^3/uL (4.0-10.0)
[2020-06-08 11:18] LABS: ERYTHROCYTE SEDIMENTATION RATE 10 mm/hr (0-20)
[2020-06-09 09:21] LABS: ALBUMIN 3.9 GM/DL (3.2-5.2); ALT/SGPT 40 U/L (12-78); BILIRUBIN,TOTAL 0.6 MG/DL (0.2-1.0); BLOOD UREA NITROGEN 15 MG/DL (7-18); CALCIUM LEVEL 9.5 MG/DL (8.5-10.1); CARBON DIOXIDE LEVEL 30 MEQ/L (21-32); CHLORIDE LEVEL 100 MEQ/L (98-107); FREE T4 1.23 NG/DL (0.76-1.46); GLOMERULAR FILTRATION RATE > 60.0 (>60); GLUCOSE, FASTING 83 MG/DL (70-100); POTASSIUM SERUM 3.3 MEQ/L (3.5-5.1); SODIUM LEVEL 137 MEQ/L (136-145); TOTAL PROTEIN 7.9 GM/DL (6.4-8.2)
[2020-07-25 04:50] LABS: CPK CREATINE PHOSPHOKINASE 73 U/L (26-192)
== END | disposition home or self-care (01) ==
LOC: M ED 21:10
DX: M06.9 Rheumatoid arthritis, unspecified (principal); G43.909 Migraine, unspecified, not intractable, without status migrainosus; F17.200 Nicotine dependence, unspecified, uncomplicated; Z79.899 Other long term (current) drug therapy; Z88.8 Allergy status to other drugs, medicaments and biological substances; Z88.5 Allergy status to narcotic agent; Z88.2 Allergy status to sulfonamides; Z91.040 Latex allergy status
CPT/HCPCS: 80053; 82550; 83735; 84439; 84443; 85025; 85652; 96374; 99284; J2930

== ENCOUNTER 2020-05-03 14:20 | Emergency (ER) | payer BC ==
[~2020-05-03 14:20] MED LIST changes: +methylPREDNISolone 1000 MG VIAL (J2930) As Ordered ONE; +methylPREDNISolone 1000 MG VIAL (J2930) ONE; -methylPREDNISolone 125MG 2ML VIAL ONE
== END 2020-05-03 15:18 | disposition home or self-care (01) ==
LOC: M ED 14:20
DX: M06.9 Rheumatoid arthritis, unspecified (principal); Z51.81 Encounter for therapeutic drug level monitoring; I10 Essential (primary) hypertension; G43.909 Migraine, unspecified, not intractable, without status migrainosus; F17.200 Nicotine dependence, unspecified, uncomplicated; Z79.899 Other long term (current) drug therapy; Z88.5 Allergy status to narcotic agent; Z88.2 Allergy status to sulfonamides; Z88.8 Allergy status to other drugs, medicaments and biological substances; Z91.040 Latex allergy status
CPT/HCPCS: 96365; 99283; J2930

== ENCOUNTER 2020-05-04 08:22 | Emergency (ER) | payer BC ==
[~2020-05-04 08:22] MED LIST changes: -methylPREDNISolone 1000 MG VIAL (J2930) As Ordered ONE; -methylPREDNISolone 1000 MG VIAL (J2930) ONE
[2020-05-04] MEDS ORDERED: methylPREDNISolone 1000 MG VIAL (J2930) As Ordered ONE (09:10)
[2020-05-04] MEDS ORDERED: methylPREDNISolone 1000 MG VIAL (J2930) ONE (09:10)
== END 2020-05-04 10:35 | disposition home or self-care (01) ==
LOC: M ED 08:22
DX: M06.9 Rheumatoid arthritis, unspecified (principal); Z51.81 Encounter for therapeutic drug level monitoring; I10 Essential (primary) hypertension; G43.909 Migraine, unspecified, not intractable, without status migrainosus; F17.210 Nicotine dependence, cigarettes, uncomplicated; Z79.899 Other long term (current) drug therapy; Z88.5 Allergy status to narcotic agent; Z88.8 Allergy status to other drugs, medicaments and biological substances; Z88.2 Allergy status to sulfonamides; Z91.040 Latex allergy status
CPT/HCPCS: 96374; 99283; J2930

== ENCOUNTER → 2020-11-23 | Outpatient (CLI) | payer BC ==
[~2020-11-23] MED LIST changes: +HYDR-3490 PO; -HYDR25TAB PO
--- NOTE | 2020-11-23 13:18 | REP ---
INDICATION: DORSALGIA, UNSPECIFIED COMPARISON: None. TECHNIQUE: AP, lateral, coned-down views of the lumbar spine. FINDINGS: Three views of the lumbosacral spine demonstrate satisfactory lordosis without acute fracture / compression injury or subluxation. No significant degenerative changes appreciated. IMPRESSION: 1. No acute fracture / compression injury or subluxation. 2. No significant degenerative changes are appreciated. If the patient remains symptomatic consider MRI for further investigation. <Electronically signed by Ang Rabago > 11/23/20 [id number]
== END ==
LOC: M RAD 12:57
PROVIDERS: ATTEND Nurse Practitioner
DX: M54.9 Dorsalgia, unspecified (principal)

== ENCOUNTER → 2021-02-10 | Outpatient (CLI) | payer BC ==
[~2021-02-10] MED LIST changes: -NABU-53 PO; +NABU-73 PO
--- NOTE | 2021-02-10 14:10 | REP ---
INDICATION: WEAKNESS OF LOWER EXTREMITIES. X-ray negative with persistent weakness of the lower extremities, positive straight leg raise. COMPARISON: Comparison radiographs November 23, 2020.. TECHNIQUE: Sagittal and axial T1 and T2-weighted scans are acquired in the usual fashion with and without fat saturation. Sequences include spin echo, turbo spin-echo, and STIR imaging sequences. FINDINGS: There is a mild levoconvex curvature in the lumbar spine unchanged from the comparison radiographs. Lumbar vertebral body heights are preserved. Alignment is otherwise normal. Cortical and medullary bone signal intensity are normal. The tip of the conus medullaris is normal in position and appearance at L1-2. No extra vertebral abnormality is observed. Axial and sagittal images taken at the L1-2 disc level show no abnormality. At L2-3, there is minimal diffuse disc bulging. Disc spaces preserved in height. No spinal stenosis or foraminal narrowing is seen. At L3-4, there is degenerative disc narrowing and decreased signal intensity mild in degree. There is diffuse bulging of the L3-4 disc margin subtly indenting the ventral aspect of the thecal sac. No foraminal stenosis or central canal narrowing is seen. At L4-5, there is minimal diffuse disc bulging. No neural foraminal narrowing or spinal stenosis is seen. There is no evidence of spondylolysis or spondylolisthesis. The L5-S1 disc level is unremarkable. IMPRESSION: There are mild degenerative disc changes at L3-4. Diffuse mild disc bulging is seen at L2-3, L3-4, and L4-5. No spinal stenosis or foraminal narrowing seen. <Electronically signed by Amilcar Muñiz > 02/10/21 [id number]
== END ==
LOC: M RAD 13:08
PROVIDERS: ATTEND Nurse Practitioner
DX: M51.26 Other intervertebral disc displacement, lumbar region (principal); M51.36 Other intervertebral disc degeneration, lumbar region

== ENCOUNTER → 2021-03-08 | Outpatient (CLI) | payer BC ==
--- NOTE | 2021-03-13 02:30 | ECWPNPC ---
PATIENT NAME: AYAZ SHI : 1985 GENDER: FEMALE VISIT DATE: 03/08/2021 DISCHARGE DATE: 03/08/21 1024 VISIT LOCKED DATE TIME: PHYSICIAN: GREGORY LOBATO PHYSICIAN PAGER NO: ACTIVE RESOURCE: GREGORY LOBATO REASON FOR APPOINTMENT 1. BACK PAIN HISTORY OF PRESENT ILLNESS DEPRESSION SCREENING: PHQ-2 (2015 EDITION) LITTLE INTEREST OR PLEASURE IN DOING THINGS?NOT AT ALL FEELING DOWN, DEPRESSED, OR HOPELESS?NOT AT ALL TOTAL SCORE0 GENERAL: PLEASANT 35-YEAR-OLD FEMALE BEING REFERRED BY [facility] [place] FOR PERSISTENT LOW BACK PAIN AND BILATERAL LEG PARESTHESIAS. LONG HISTORY OF CHRONIC LOW BACK PAIN WITHOUT PRECIPITATING EVENT. HAS MEDICAL HISTORY OF RHEUMATOID ARTHRITIS. CURRENTLY ON ORENCIA THAT WAS STARTED IN NOVEMBER. REPORTS THAT LOW BACK PAIN AWAKENS HER AT NIGHT TIME. REPORTING POOR SLEEP DUE TO PAIN. HISTORY OF MULTIPLE MEDICATION ADVERSE REACTIONS. PATIENT IS REPORTING WEAKNESS AND SHAKINESS IN BOTH OF HER LEGS GOING UP AND DOWN STAIRS OVER THE PAST 2 MONTHS. REVIEWED MRI OF THE LS-SPINE. THIS IS BASICALLY WITH MINOR DEGENERATIVE CHANGES/BULGING DISC. DISCUSSED MEDICATION AND TREATMENT OPTIONS. DENIES RECENT FEVER OR ILLNESS OR SUDDEN WEIGHT LOSS. DENIES BOWEL OR BLADDER INCONTINENCE. DENIES SADDLE PARESTHESIAS. - - -. FALL RISK SCREENING: SCREENING : NO FALLS REPORTED IN THE LAST YEAR . PAIN SCREENING: PATIENT HAS A COMPLAINT OF ACUTE OR CHRONIC PAIN :YES LOCATION OF PAIN:LOW BACK INTENSITY OF PAIN (SCALE OF 1 TO 10):7 WHAT DOES YOUR PAIN FEEL LIKE:BURNING, SORE DURATION:ONLY WITH SPECIFIC ACTIVITIES, INTERMITTENT, AWAKENS FROM SLEEP PAIN IS INCREASED BY:OTHERS HURTS WHEN LAYING DOWN, HAVE NOT BEEN SLEEPING VERY WELL PAIN IS DECREASED BY:USE OF PAIN MEDICATIONS, OTHERS " HOPE AND PRAY " NURSING NOTE: - - -. PAIN CENTER INTAKE QUESTIONS: DO YOU HAVE A HISTORY OF MRSA? :NO DO YOU TAKE A BLOOD THINNERS? :NO DO YOU HAVE ANY BLEEDING DISORDERS? :NO ANY NEW NUMBNESS OR WEAKNESS IN YOUR LEGS OR ARMS? :YES BILATERAL LEG WEAKNESS ANY PACEMAKER,DEFIBRILLATOR, OR DORSAL COLUMN STIMULATOR? :NO DO YOU HAVE ANY RASHES OR OPEN SORES? :NO ARE YOU ALLERGIC TO IV DYE? :NO ARE YOU DIABETIC? :NO ANY NEW PROBLEMS WITH YOUR MEDICATIONS? :NO HAVE YOU RECEIVED A VACCINE IN THE PAST 30 DAYS? :NO DO YOU PLAN TO RECEIVE A VACCINE IN THE NEXT 21 DAYS? :NO DO YOU NEED ANY PRESCRIPTION? :NO DO YOU TAKE ANY IMMUNOSUPPRESSIVE MEDICATIONS? :YES ORENCIA 250 MG IS THERE A CHANCE YOU COULD BE ? :NO ARE YOU BREAST FEEDING? :NO CURRENT MEDICATIONS TAKING DRISDOL 61726 UNIT CAPSULE 1 CAPSULE ORALLY TWICE A WEEK TAKING HYDROCHLOROTHIAZIDE 25 MG TABLET 1 TABLET IN THE MORNING ORALLY ONCE A DAY TAKING MAXALT-PROMOTIONS DIRECTOR 10 MG TABLET DISPERSIBLE 1 TABLET ON THE TONGUE AND ALLOW TO DISSOLVE NEEDED ONE TIME ORALLY ONCE A DAY TAKING LOSARTAN POTASSIUM 50 MG TABLET 1 TABLET ORALLY ONCE A DAY TAKING ORENCIA 250 MG SOLUTION RECONSTITUTED DIRECTED INTRAVENOUS ONCE A MONTH TAKING ALEVE 220 MG TABLET 1 TABLET WITH FOOD OR MILK NEEDED ORALLY EVERY 12 HRS NOT-TAKING MELOXICAM 15 MG TABLET 1 TABLET ORALLY ONCE A DAY NOT-TAKING ALEVE 220 MG TABLET 1 TABLET WITH FOOD OR MILK NEEDED ORALLY EVERY 12 HRS NOT-TAKING XELJANZ 5 MG TABLET 1 TABLET ORALLY TWICE A DAY NOT-TAKING ATIVAN 0.5 MG TABLET 1-2 TABLET NEEDED ORALLY EVERY 6 HRS, PRN MDD=6 NOT-TAKING AZATHIOPRINE 50 MG TABLET 1 TAB ORALLY DAILY NOT-TAKING PREDNISONE TAPER 1 TAB ORAL NOT-TAKING MELOXICAM 15 MG TABLET 1 TABLET ORALLY ONCE A DAY NOT-TAKING PREDNISONE 10 MG TABLET 4 TAB ORALLY ONCE A DAY MEDICATION LIST REVIEWED AND RECONCILED WITH THE PATIENT PAST MEDICAL HISTORY HX ASTHMA MIGRAINE HEADACHES ATYPICAL NEVI OVER ENTIRE BODY ECZEMA DEPRESSION HTN SPECT NEUCLEAR STRESS TEST 07/2017 [employer] MY RISK GENETIC TEST NEGATIVE FOR MUTATION 2017 BUT POSITIVE FOR UNCERTAIN VARIANT IN THE SMAD4 GENE LIFETIME BREAST CANCER RISK BY SANDIE LUNDBERG IS 8.5 %- FAMILY HISTORY ARTHIRIS MULTPY SITE CHICKEN POX ALLERGIES LATEX (FOR ALLERGY USE ONLY): DYSPNEA - ALLERGY PERCOCET: N/V RASH - ALLERGY TOPAMAX: NAUSEA/VOMITING - SIDE EFFECTS TAPE: LINDER SKIN - SIDE EFFECTS SULFA: THROAT SWELLING - SIDE EFFECTS LISINOPRIL: COUGH - SIDE EFFECTS INFLECTRA: ANAPHYLAXIS - ALLERGY ACTEMRA: ANAPHYLAXIS - ALLERGY REMICADE: HIVES - SIDE EFFECTS XELJANZ: DIARRHEA, WEIGHT LOSS - SIDE EFFECTS MELOXICAM: UPSET STOMACH - ALLERGY SURGICAL HISTORY MULTIPLE MOLES REMOVED 2004 TUBAL LIGATION 08/2011 COLONOSCOPY 04/2015 [employer]NA[employer]INT[employer] A[employer]ASION 2018 FAMILY HISTORY FATHER: ALIVE 54 YRS, UNKNOWN TO PT, ESTRANGED FROM HER, DIAGNOSED WITH UNSPECIFIED HEART DISEASE MOTHER: ALIVE 52 YRS, ATRIAL FIBRILLATION, ABLATIONS X2, TOTAL HYSTERECTOMY AT AGE 30 DUE TO CANCER-OVARIAN NOW HAS KIDNEY CANCER AND BLADDER CANCER, OTHER MALIGNANT NEOPLASM OF UNSPECIFIED SITE SIBLINGS: ALIVE 26, 17 YRS, SISTER BARON OVARIAN CANCER AT AGE 29 ABNORMAL PAP, SISTER TIFFANIE ABNORMAL PAP DAUGHTER(S): ALIVE 15 YRS, HEART MURMUR, CYCLIC VOMITING, INTESTINAL PROBLEMS AT , LACTOSE INTOLERANCE, ECZEMA, ENVIRONMENTAL ALLERGIES PATERNAL GRAND FATHER: , AMI PATERNAL GRAND MOTHER: , STROKE MATERNAL GRAND FATHER: 74 YRS, OLD AGE, DEMENTIA, HTN, HEART DISEASE, ATHLERSCLEROSIS PROSTATE CANCERAT 68 MATERNAL GRAND MOTHER: 60'S YRS, COLON CANCER AND UTERINE CANCER MATERNAL UNCLE: 51 YRS, BRAIN CANCER MATERNAL AUNT: 53 YRS, AUNT PENNEYCOLON CANCER AT 53 ,IVAN OVARIAN CANCER AT AGE 50 2 SISTER(S) - HEALTHY. 1DAUGHTER(S) - HEALTHY. MATERNAL GREAT GRNADMOTHER WITH MELANOMA. DENIES FAMILY HX OF PANCREATIC CANCERMATERNAL COUSIN OVARY AND UTERINE CANCER AT 30HALF BROTHER. SOCIAL HISTORY GENERAL: TOBACCO USE ARE YOU A:CURRENT SMOKER ARE YOU INTERESTED IN QUITTING?NOT READY TO QUIT COUNSELED THE PATIENT ON SMOKING EFFECTS, EDUCATION [id number]/18/2021 HOW MANY CIGARETTES A DAY DO YOU SMOKE?6-10 HOW SOON AFTER YOU WAKE UP DO YOU SMOKE YOUR FIRST CIGARETTE?6-30 MIN HOW OFTEN DO YOU SMOKE CIGARETTES?EVERY DAY PATIENT COUNSELED ON THE DANGERS OF TOBACCO USE AND URGED TO QUIT:03/08/2021 SMOKING CESSATION INFORMATION GIVEN11/22/2019 VAPORNO E-CIGARETTENO LATEX QUESTIONNAIRE LATEX ALLERGY : HAVE YOU EVER DEVELOPED ANY TYPE OF REACTION AFTER HANDLING LATEX PRODUCTS SUCH RUBBER GLOVES, CONDOMS, DIAPHRAGMS, BALLOONS, SOCKS, OR UNDERWEAR?YES - PLEASE INDICATE :RUBBER GLOVES, CONDOMS, BALLOONS, DIAPHRAGMS, SOCKS, UNDERWEAR LATEX ALLERGY : HAVE YOU EVER DEVELOPED ANY TYPE OF REACTION DURING OR AFTER DENTAL APPOINTMENT, VAGINAL/RECTAL EXAMINATION, SURGICAL PROCEDURE, OR ANY OTHER EXPOSURE?NO LATEX RISK : HAVE YOU EVER HAD ANY DIFFICULTY BREATHING OR HIVES AFTER EATING OR HANDLING ANY FRUITS, OR VEGETABLES; SUCH KIWI, BANANAS, STONE FRUITS, OR CHESTNUTSYES LATEX RISK : DO YOU HAVE A PREVIOUS PERSONAL HISTORY OF MORE THAN NINE SURGERIES, SPINA BIFIDA, OR REPEATED CATHERIZATIONS? NO LATEX RISK : ARE YOU FREQUENTLY EXPOSED TO LATEX PRODUCTS IN YOUR OCCUPATION?NO DATE ASKED : 03/08/2021 ALCOHOL USE: YES, VERY RARELY. LUNG CANCER SCREENING SMOKING STATUS:CURRENT SMOKER IS THE PATIENT BETWEEN THE AGE OF 53 AND 75?NO BMI CARE GOAL FOLLOW-UP ABOVE NORMAL BMI FOLLOW-UPEXERCISE PROMOTION: STRETCHING ALCOHOL SCREENING DID YOU HAVE A DRINK CONTAINING ALCOHOL IN THE PAST YEAR?YES HOW OFTEN DID YOU HAVE SIX OR MORE DRINKS ON ONE OCCASION IN THE PAST YEAR?NEVER (0 POINTS) HOW MANY DRINKS DID YOU HAVE ON A TYPICAL DAY WHEN YOU WERE DRINKING IN THE PAST YEAR?1 OR 2 (0 POINTS) HOW OFTEN DID YOU HAVE A DRINK CONTAINING ALCOHOL IN THE PAST YEAR?MONTHLY OR LESS (1 POINT) POINTS1 INTERPRETATIONNEGATIVE RECREATIONAL DRUG USE DRUG USE?NO CAFFEINE CAFFEINE USE?YES 1 CUP DAILY SEXUAL HX HAD SEX IN THE LAST 12 MONTHS (VAGINAL, ORAL, OR ANAL)?YES WITHMEN ONLY USE PROTECTION?NO LMP:11/18/2017 HAVE YOU EVER HAD AN STD?NO HIV / HEP-C SCREENING HIV TEST OFFERED TO PATIENT:YES DATE OFFERED:08/24/2018 TEST ACCEPTED:NO HIV TEST DURING HEP-C TEST OFFERED TO PATIENT:YES 1985 DATE OFFERED:08/24/2018 REASON:PATIENT DECLINED TEST ACCEPTED:NO REASON:PATIENT DECLINED BROCHURE PROVIDED TO PATIENTNO MUSLIM [id number] MORAVIAN LANGUAGE TELUGU. 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 EXERCISE: PHYSICAL JOB. MARITAL STATUS: . OTHERS AT HOME: SPOUSE, CHILD, 1 DOG. HOSPITALIZATION/MAJOR DIAGNOSTIC PROCEDURE SURGERY KIDNEY STONE 2018 CHILD X1 2006 REVIEW OF SYSTEMS CONSTITUTIONAL: ANY RECENT FEVER NO . CHILLS NO . WEIGHT CHANGE OF UNKNOWN REASONS NO . GASTROENTEROLOGY: NEW UNEXPLAINABLE CHANGES IN BOWEL CONTROL NO . CONSTIPATION NO . GENITOURINARY: ANY NEW CHANGE IN BLADDER CONTROL? NO . NEUROLOGY: NEW ONSET DIZZINESS OR NEUROLOGICAL CHANGES NOT MENTIONED NO . NEW NUMBNESS OR PAIN PATTERNS NOT MENTIONED AND PERTINENT TO TODAY'S VISIT NO . CARDIOLOGY: NEW CHEST PRESSURE NO . PATIENT DENIES NO . RESPIRATORY: UNEXPLAINABLE COUGH NO . NEW SHORTNESS OF BREATH NO . VITAL SIGNS WT 158.4 LBS, HT 64 IN, BMI 27.19 INDEX, BP 149/86 MM HG, HR 82 /MIN, RR 18 /MIN, TEMP 98.2 F, OXYGEN SAT % 98%, SAFE IN ENV? (Y/N) YES, NA INITIALS WY 09:31T.PINEDA, PATIENT STATED THAT SHE HAD A REDBULL THIS MORNING. EXAMINATION GENERAL EXAMINATION: GENERALNO ACUTE DISTRESS, WELL NOURISHED AND HYDRATED. PSYCHAPPROPRIATE MOOD AND AFFECT . FACE:UNREMARKABLE. NECK:NO LYMPHADENOPATHY, SUPPLE. LUNGS:CLEAR TO AUSCULTATION BILATERALLY, NO WHEEZES, RHONCHI, RALES. HEART:NO MURMURS, REGULAR RATE AND RHYTHM. MUSCULOSKELETAL:SLIGHT WEAKNESS NOTED OVER LOWER EXTREMITIES BILATERAL . LUMBAR:MILD TENDERNESS NOTED OVER L/S AXIS AND LUMBAR PARASPINALS. TRIGGER POINTS ELICITED IN LUMBAR PARASPINALS RIGHT GREATER THAN LEFT. PAIN IS AGGRAVATED IN THIS AREA WITH RANGE OF JOINT MOTION OF SPINE. . NEUROLOGIC EXAM: PARATHESIAS TO LIGHT TOUCH NOTED OVER BILATERAL LOWER EXTREMITIES. DIAGNOSTIC TESTS REVIEWED MRI L/S SPINE-02/10/21. 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 I'M HOPING THIS WILL HELP WITH NIGHTTIME PAIN AND IMPROVEMENT WITH SLEEP. FOLLOW-UP AT PAIN CLINIC IS SCHEDULED IN 4 WEEKS. MAY CONSIDER NEUROLOGY REFERRAL. MAY CONSIDER TRIGGER POINT INJECTIONS BILATERAL LOW BACK. PROCEDURE CODES FA211 ESTABILISHED PATIENT [facility] FACILITY CHARGE DISPOSITION & COMMUNICATION FOLLOW UP 4 WEEKS (REASON: MED MGMNT/RHEUMATOID ARTHRITIS/START OF GABAPENTIN/CONSIDER NEUROLOGY REF/TRIGGER POINTS LBP) ELECTRONICALLY SIGNED BY SUSAN LAWRENCE ON 03/12/2021 AT 01:45 PM EDT DISCLAIMER : THIS IS A VISIT SUMMARY EXTRACTED FROM THE [employer] CHART. IT IS NOT A COPY OF THE [employer] PROGRESS NOTE. MTDD
== END ==
LOC: M PAIN 09:30
PROVIDERS: ATTEND Nurse Practitioner Family
DX: M12.9 Arthropathy, unspecified (principal); M79.2 Neuralgia and neuritis, unspecified; G43.909 Migraine, unspecified, not intractable, without status migrainosus; I10 Essential (primary) hypertension; F17.210 Nicotine dependence, cigarettes, uncomplicated; L30.9 Dermatitis, unspecified; Z79.1 Long term (current) use of non-steroidal anti-inflammatories (NSAID); Z79.899 Other long term (current) drug therapy; Z88.2 Allergy status to sulfonamides; Z88.6 Allergy status to analgesic agent; Z88.5 Allergy status to narcotic agent; Z88.8 Allergy status to other drugs, medicaments and biological substances; Z91.040 Latex allergy status; Z91.048 Other nonmedicinal substance allergy status

== ENCOUNTER → 2021-04-05 | Outpatient (CLI) | payer BC ==
--- NOTE | 2021-04-06 05:11 | ECWPNPC ---
PATIENT NAME: AYAZ SHI : 1985 GENDER: FEMALE VISIT DATE: 04/05/2021 DISCHARGE DATE: 04/05/21 1041 VISIT LOCKED DATE TIME: PHYSICIAN: GREGORY LOBATO PHYSICIAN PAGER NO: ACTIVE RESOURCE: GREGORY LOBATO REASON FOR APPOINTMENT 1. MED MGMNT/RHEUMATOID ARTHRITIS/START OF GABAPENTIN/CONSIDER NEUROLOGY REF/TRIGGER POINTS LBP HISTORY OF PRESENT ILLNESS GENERAL: HERE FOR FOLLOW-UP AFTER INITIAL EVALUATION FOR CHRONIC LOW BACK PAIN WITH A HISTORY OF RHEUMATOID ARTHRITIS. CURRENTLY ON ORENCIA INFUSIONS MONTHLY. SHE WILL BE HAVING THAT TODAY. TRIALED ON GABAPENTIN 100 MG AT BEDTIME AT HER LAST VISIT. PATIENT REPORTS SIDE EFFECTS OF CONFUSION. HISTORY OF MULTIPLE MEDICATION INTOLERANCES/ADVERSE REACTIONS. DISCUSSED DIAGNOSTIC LUMBAR FACET BLOCK AND RADIOFREQUENCY. PATIENT WOULD LIKE TO PROCEED. -. FALL RISK SCREENING: SCREENING : NO FALLS REPORTED IN THE LAST YEAR. PAIN SCREENING: PATIENT HAS A COMPLAINT OF ACUTE OR CHRONIC PAIN :YES LOCATION OF PAIN:OTHER: ARTHRITIS INTENSITY OF PAIN (SCALE OF 1 TO 10):7 WHAT DOES YOUR PAIN FEEL LIKE:ACHING, BURNING, SHARP, STABBING, TENDER, SORE, SHOOTING DURATION:CONTINOUS, CONSTANT, ALL DAY PAIN IS INCREASED BY:ACTIVITIES, OTHERS ANY THING FOR A LONG PEROID OF TIME PAIN IS DECREASED BY:USE OF PAIN MEDICATIONS ALEVE 220 MG NURSING NOTE: -PATIENT STATED THAT SHE HAS HIGH BLOOD PRESSURE WHICH IS BEEN CONTROLLED, AND HAS INFUSION 04/05/2021. PAIN CENTER INTAKE QUESTIONS: DO YOU HAVE A HISTORY OF MRSA? :NO DO YOU TAKE A BLOOD THINNERS? :NO DO YOU HAVE ANY BLEEDING DISORDERS? :NO ANY NEW NUMBNESS OR WEAKNESS IN YOUR LEGS OR ARMS? :YES BILATERAL LEG WEAKNESS ANY PACEMAKER,DEFIBRILLATOR, OR DORSAL COLUMN STIMULATOR? :NO DO YOU HAVE ANY RASHES OR OPEN SORES? :NO ARE YOU ALLERGIC TO IV DYE? :NO ARE YOU DIABETIC? :NO ANY NEW PROBLEMS WITH YOUR MEDICATIONS? :YES STOP TAKING THE GABAPENTIN WAS HAVING SOME SIDE EFFECT FROM IT HAVE YOU RECEIVED A VACCINE IN THE PAST 30 DAYS? :NO DO YOU PLAN TO RECEIVE A VACCINE IN THE NEXT 21 DAYS? :NO DO YOU NEED ANY PRESCRIPTION? :NO DO YOU TAKE ANY IMMUNOSUPPRESSIVE MEDICATIONS? :YES ORENCIA 250 MG IS THERE A CHANCE YOU COULD BE ? :NO ARE YOU BREAST FEEDING? :NO CURRENT MEDICATIONS TAKING DRISDOL 58484 UNIT CAPSULE 1 CAPSULE ORALLY TWICE A WEEK TAKING HYDROCHLOROTHIAZIDE 25 MG TABLET 1 TABLET IN THE MORNING ORALLY ONCE A DAY TAKING MAXALT-IT CONSULTANT 10 MG TABLET DISPERSIBLE 1 TABLET ON THE TONGUE AND ALLOW TO DISSOLVE NEEDED ONE TIME ORALLY ONCE A DAY TAKING LOSARTAN POTASSIUM 50 MG TABLET 1 TABLET ORALLY ONCE A DAY TAKING ORENCIA 250 MG SOLUTION RECONSTITUTED DIRECTED INTRAVENOUS ONCE A MONTH TAKING ALEVE 220 MG TABLET 1 TABLET WITH FOOD OR MILK NEEDED ORALLY EVERY 12 HRS NOT-TAKING GABAPENTIN 100 MG CAPSULE 1 CAPSULE ORALLY TWICE DAILY NOT-TAKING MELOXICAM 15 MG TABLET 1 TABLET ORALLY ONCE A DAY NOT-TAKING ALEVE 220 MG TABLET 1 TABLET WITH FOOD OR MILK NEEDED ORALLY EVERY 12 HRS NOT-TAKING XELJANZ 5 MG TABLET 1 TABLET ORALLY TWICE A DAY NOT-TAKING ATIVAN 0.5 MG TABLET 1-2 TABLET NEEDED ORALLY EVERY 6 HRS, PRN MDD=6 NOT-TAKING AZATHIOPRINE 50 MG TABLET 1 TAB ORALLY DAILY NOT-TAKING PREDNISONE TAPER 1 TAB ORAL NOT-TAKING MELOXICAM 15 MG TABLET 1 TABLET ORALLY ONCE A DAY NOT-TAKING PREDNISONE 10 MG TABLET 4 TAB ORALLY ONCE A DAY MEDICATION LIST REVIEWED AND RECONCILED WITH THE PATIENT PAST MEDICAL HISTORY HX ASTHMA MIGRAINE HEADACHES ATYPICAL NEVI OVER ENTIRE BODY ECZEMA DEPRESSION HTN SPECT NEUCLEAR STRESS TEST 07/2017 [facility] MY RISK GENETIC TEST NEGATIVE FOR MUTATION 2017 BUT POSITIVE FOR UNCERTAIN VARIANT IN THE SMAD4 GENE LIFETIME BREAST CANCER RISK BY SANDIE LUNDBERG IS 8.5 %- FAMILY HISTORY ARTHIRIS MULTPY SITE CHICKEN POX ALLERGIES LATEX (FOR ALLERGY USE ONLY): DYSPNEA - ALLERGY PERCOCET: N/V RASH - ALLERGY TOPAMAX: NAUSEA/VOMITING - SIDE EFFECTS TAPE: LINDER SKIN - SIDE EFFECTS SULFA: THROAT SWELLING - SIDE EFFECTS LISINOPRIL: COUGH - SIDE EFFECTS INFLECTRA: ANAPHYLAXIS - ALLERGY ACTEMRA: ANAPHYLAXIS - ALLERGY REMICADE: HIVES - SIDE EFFECTS XELJANZ: DIARRHEA, WEIGHT LOSS - SIDE EFFECTS MELOXICAM: UPSET STOMACH - ALLERGY GABAPENTIN: SIDE EFFECTS OF CONFUSION - SIDE EFFECTS SOCIAL HISTORY GENERAL: TOBACCO USE ARE YOU A:CURRENT SMOKER ARE YOU INTERESTED IN QUITTING?NOT READY TO QUIT COUNSELED THE PATIENT ON SMOKING EFFECTS, EDUCATION [id number]/16/2021 HOW MANY CIGARETTES A DAY DO YOU SMOKE?6-10 HOW SOON AFTER YOU WAKE UP DO YOU SMOKE YOUR FIRST CIGARETTE?6-30 MIN HOW OFTEN DO YOU SMOKE CIGARETTES?EVERY DAY PATIENT COUNSELED ON THE DANGERS OF TOBACCO USE AND URGED TO QUIT:04/05/2021 SMOKING CESSATION INFORMATION GIVEN11/22/2019 VAPORNO E-CIGARETTENO LATEX QUESTIONNAIRE LATEX ALLERGY : HAVE YOU EVER DEVELOPED ANY TYPE OF REACTION AFTER HANDLING LATEX PRODUCTS SUCH RUBBER GLOVES, CONDOMS, DIAPHRAGMS, BALLOONS, SOCKS, OR UNDERWEAR?YES - PLEASE INDICATE :RUBBER GLOVES, CONDOMS, BALLOONS, DIAPHRAGMS, SOCKS, UNDERWEAR LATEX ALLERGY : HAVE YOU EVER DEVELOPED ANY TYPE OF REACTION DURING OR AFTER DENTAL APPOINTMENT, VAGINAL/RECTAL EXAMINATION, SURGICAL PROCEDURE, OR ANY OTHER EXPOSURE?NO LATEX RISK : HAVE YOU EVER HAD ANY DIFFICULTY BREATHING OR HIVES AFTER EATING OR HANDLING ANY FRUITS, OR VEGETABLES; SUCH KIWI, BANANAS, STONE FRUITS, OR CHESTNUTSYES LATEX RISK : DO YOU HAVE A PREVIOUS PERSONAL HISTORY OF MORE THAN NINE SURGERIES, SPINA BIFIDA, OR REPEATED CATHERIZATIONS? NO LATEX RISK : ARE YOU FREQUENTLY EXPOSED TO LATEX PRODUCTS IN YOUR OCCUPATION?NO DATE ASKED : 04/05/2021 ALCOHOL USE: YES, VERY RARELY. LUNG CANCER SCREENING SMOKING STATUS:CURRENT SMOKER IS THE PATIENT BETWEEN THE AGE OF 53 AND 75?NO BMI CARE GOAL FOLLOW-UP ABOVE NORMAL BMI FOLLOW-UPEXERCISE PROMOTION: STRETCHING ALCOHOL SCREENING DID YOU HAVE A DRINK CONTAINING ALCOHOL IN THE PAST YEAR?YES HOW OFTEN DID YOU HAVE SIX OR MORE DRINKS ON ONE OCCASION IN THE PAST YEAR?NEVER (0 POINTS) HOW MANY DRINKS DID YOU HAVE ON A TYPICAL DAY WHEN YOU WERE DRINKING IN THE PAST YEAR?1 OR 2 (0 POINTS) HOW OFTEN DID YOU HAVE A DRINK CONTAINING ALCOHOL IN THE PAST YEAR?MONTHLY OR LESS (1 POINT) POINTS1 INTERPRETATIONNEGATIVE RECREATIONAL DRUG USE DRUG USE?NO CAFFEINE CAFFEINE USE?YES 1 CUP DAILY SEXUAL HX HAD SEX IN THE LAST 12 MONTHS (VAGINAL, ORAL, OR ANAL)?YES WITHMEN ONLY USE PROTECTION?NO LMP:11/18/2017 HAVE YOU EVER HAD AN STD?NO HIV / HEP-C SCREENING HIV TEST OFFERED TO PATIENT:YES DATE OFFERED:08/24/2018 TEST ACCEPTED:NO HIV TEST DURING HEP-C TEST OFFERED TO PATIENT:YES BORN 1985 DATE OFFERED:08/24/2018 REASON:PATIENT DECLINED TEST ACCEPTED:NO REASON:PATIENT DECLINED BROCHURE PROVIDED TO PATIENTNO RESTORATIONISM [id number] GNOSTICISM LANGUAGE SWEDISH. 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 EXERCISE: PHYSICAL JOB. MARITAL STATUS: . OTHERS AT HOME: SPOUSE, CHILD, 1 DOG. REVIEW OF SYSTEMS CONSTITUTIONAL: ANY RECENT FEVER NO . CHILLS NO . WEIGHT CHANGE OF UNKNOWN REASONS NO . GASTROENTEROLOGY: NEW UNEXPLAINABLE CHANGES IN BOWEL CONTROL NO . CONSTIPATION NO . GENITOURINARY: ANY NEW CHANGE IN BLADDER CONTROL? NO . NEUROLOGY: NEW ONSET DIZZINESS OR NEUROLOGICAL CHANGES NOT MENTIONED NO . NEW NUMBNESS OR PAIN PATTERNS NOT MENTIONED AND PERTINENT TO TODAY'S VISIT NO . CARDIOLOGY: NEW CHEST PRESSURE NO . PATIENT DENIES NO . RESPIRATORY: UNEXPLAINABLE COUGH NO . NEW SHORTNESS OF BREATH NO . VITAL SIGNS WT 156.8 LBS, HT 64 IN, BMI 26.91 INDEX, BP 141/80 MM HG, HR 73 /MIN, RR 18 /MIN, TEMP 97.8 F, OXYGEN SAT % 98%, SAFE IN ENV? (Y/N) YES, NA INITIALS MS 09:59T.MIRIAM FALCON. EXAMINATION GENERAL EXAMINATION: GENERAL AWAKE,ALERT ,PLEAASANT . PSYCH AFFECT NORMAL . LUNGS: LUNG MURPHY ARE CLEAR TO AUSCULTATION BILATERALLY. GOOD MOVEMENT OF AIR . HEART: S1, S2 IN A REGULAR RATE AND RHYTHM. NO SIGNIFICANT MURMURS, RUBS OR GALLOPS NOTED . LUMBAR:PALPATION:TENDER OVER BILAT. L4/5-L5/S1 LUMBAR FACETS WITH FACET LOADING.. DIAGNOSTIC TESTS REVIEWEDMRI SPINE 02/10/2021. 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 CLINICAL NOTES: REVIEWED PRE PROCEDURE INFORMATION, VERBALIZED UNDERSTANDING TAYLOR FALCON . PROCEDURE CODES [id number] ESTABILISHED PATIENT [facility] FAC[facility] CHARGE DISPOSITION & COMMUNICATION FOLLOW UP POST PROCEDURE (REASON: BILATERAL DIAGNOSTIC LUMBAR FACET BLOCK L4-5,L5 -S1#1) ELECTRONICALLY SIGNED BY SUSAN LAWRENCE ON 04/05/2021 AT 01:43 PM EDT DISCLAIMER : THIS IS A VISIT SUMMARY EXTRACTED FROM THE [employer] CHART. IT IS NOT A COPY OF THE [employer] PROGRESS NOTE. JEN
== END ==
LOC: M PAIN 10:00
PROVIDERS: ATTEND Nurse Practitioner Family
DX: M47.816 Spondylosis without myelopathy or radiculopathy, lumbar region (principal); G89.29 Other chronic pain; J45.909 Unspecified asthma, uncomplicated; G43.909 Migraine, unspecified, not intractable, without status migrainosus; F17.210 Nicotine dependence, cigarettes, uncomplicated; Z86.59 Personal history of other mental and behavioral disorders; Z88.2 Allergy status to sulfonamides; Z88.5 Allergy status to narcotic agent; Z88.8 Allergy status to other drugs, medicaments and biological substances; Z91.040 Latex allergy status; Z79.899 Other long term (current) drug therapy

== ENCOUNTER → 2021-04-25 | Outpatient (CLI) | payer BC | LOC: M LABSMTC 11:56 | PROVIDERS: ATTEND Anesthesiology | DX: Z01.812 Encounter for preprocedural laboratory examination (principal); Z20.822 Contact with and (suspected) exposure to COVID-19 ==

== ENCOUNTER → 2021-04-30 | Outpatient (CLI) | payer BC ==
[~2021-04-30] MED LIST changes: +BUPIVACAINE HCL 0.25% 30ML VIAL As Ordered ONE; +ISOVUE-M 300 61% 15ML VIAL As Ordered ONE; +LIDOCAINE 1% SDV 30ML VIAL As Ordered ONE
--- NOTE | 2021-05-01 07:54 | REP ---
INDICATION: BILATERAL DIAGNOSTIC LUMBAR FACET BLOCK. COMPARISON: None. TECHNIQUE: Four views. 59.9 seconds of fluoroscopy time is reported. FINDINGS: A sequence of 4 last image hold fluoroscopically obtained spot radiograph(s) of the lumbar spine document(s) needle position(s) and contrast injection associated with injection procedure. IMPRESSION: Procedural imaging. <Electronically signed by Amilcar Muñiz > 05/01/21 [id number]
--- NOTE | 2021-05-04 03:38 | ECWPNPC ---
PATIENT NAME: AYAZ SHI : 1985 GENDER: FEMALE VISIT DATE: 04/30/2021 DISCHARGE DATE: 04/30/211838 VISIT LOCKED DATE TIME: PHYSICIAN: MINA LAM MD PHYSICIAN PAGER NO: INACTIVE RESOURCE: MINA LAM MD REASON FOR APPOINTMENT 1. BILATERAL DIAGNOSTIC LUMBAR FACET BLOCK L4-5,L5 -S1#1 HISTORY OF PRESENT ILLNESS GENERAL: -. FALL RISK SCREENING: SCREENING : NO FALLS REPORTED IN THE LAST YEAR. PAIN SCREENING: PATIENT HAS A COMPLAINT OF ACUTE OR CHRONIC PAIN :YES LOCATION OF PAIN:MID BACK, LOW BACK, LEFT HIP, RIGHT HIP, LEG(S) INTENSITY OF PAIN (SCALE OF 1 TO 10):8 WHAT DOES YOUR PAIN FEEL LIKE:ACHING, BURNING, CONTINOUS, SHARP, OTHER PRESSURE DURATION:CONTINOUS PAIN IS INCREASED BY:OTHERS PROLONGED SITTING, PROLONGED STANDING PAIN IS DECREASED BY:OTHERS CHANGING POSITIONS, ALEVE NURSING NOTE: -. PAIN CENTER INTAKE QUESTIONS: DO YOU HAVE A HISTORY OF MRSA? :NO DO YOU TAKE A BLOOD THINNERS? :NO DO YOU HAVE ANY BLEEDING DISORDERS? :NO ANY NEW NUMBNESS OR WEAKNESS IN YOUR LEGS OR ARMS? :NO ANY PACEMAKER,DEFIBRILLATOR, OR DORSAL COLUMN STIMULATOR? :NO DO YOU HAVE ANY RASHES OR OPEN SORES? :NO ARE YOU ALLERGIC TO IV DYE? :NO ARE YOU DIABETIC? :NO ANY NEW PROBLEMS WITH YOUR MEDICATIONS? :NO HAVE YOU RECEIVED A VACCINE IN THE PAST 30 DAYS? :NO DO YOU PLAN TO RECEIVE A VACCINE IN THE NEXT 21 DAYS? :NO DO YOU TAKE ANY IMMUNOSUPPRESSIVE MEDICATIONS? :YES ORENICA- LAST DOSE 04/05/2021 ANY HISTORY OF SEIZURES? :NO ANY HISTORY OF CARDIAC ISSUES OR EVENTS? :NO DO YOU HAVE ANY KIDNEY OR LIVER DISEASE? :NO DO YOU HAVE SLEEP APNEA? :NO ANY RECENT HEAD INJURY? :NO DO YOU HAVE ANY NEW INFECTIONS? :NO IS THERE A CHANCE YOU COULD BE ? :NO ARE YOU BREAST FEEDING? :NO WHEN DID YOU LAST EAT? : 04/30/2021 0700 WHEN DID YOU LAST DRINK? : 04/30/2021 1150 WHAT DID YOU LAST DRINK? : WATER NAME OF PERSON DRIVING YOU HOME? : EDITH DO YOU HAVE ANY OTHER QUESTIONS OR CONCERNS? : NO CURRENT MEDICATIONS TAKING DRISDOL 07149 UNIT CAPSULE 1 CAPSULE ORALLY TWICE A WEEK TAKING HYDROCHLOROTHIAZIDE 25 MG TABLET 1 TABLET IN THE MORNING ORALLY ONCE A DAY TAKING MAXALT-SHIPWRIGHT HELPER 10 MG TABLET DISPERSIBLE 1 TABLET ON THE TONGUE AND ALLOW TO DISSOLVE NEEDED ONE TIME ORALLY ONCE A DAY TAKING LOSARTAN POTASSIUM 50 MG TABLET 1 TABLET ORALLY ONCE A DAY TAKING ORENCIA 250 MG SOLUTION RECONSTITUTED DIRECTED INTRAVENOUS ONCE A MONTH, NOTES: 04/05/2021 TAKING ALEVE 220 MG TABLET 1 TABLET WITH FOOD OR MILK NEEDED ORALLY EVERY 12 HRS NOT-TAKING GABAPENTIN 100 MG CAPSULE 1 CAPSULE ORALLY TWICE DAILY NOT-TAKING MELOXICAM 15 MG TABLET 1 TABLET ORALLY ONCE A DAY NOT-TAKING ALEVE 220 MG TABLET 1 TABLET WITH FOOD OR MILK NEEDED ORALLY EVERY 12 HRS NOT-TAKING XELJANZ 5 MG TABLET 1 TABLET ORALLY TWICE A DAY NOT-TAKING ATIVAN 0.5 MG TABLET 1-2 TABLET NEEDED ORALLY EVERY 6 HRS, PRN MDD=6 NOT-TAKING AZATHIOPRINE 50 MG TABLET 1 TAB ORALLY DAILY NOT-TAKING PREDNISONE TAPER 1 TAB ORAL NOT-TAKING MELOXICAM 15 MG TABLET 1 TABLET ORALLY ONCE A DAY NOT-TAKING PREDNISONE 10 MG TABLET 4 TAB ORALLY ONCE A DAY MEDICATION LIST REVIEWED AND RECONCILED WITH THE PATIENT PAST MEDICAL HISTORY HX ASTHMA MIGRAINE HEADACHES ATYPICAL NEVI OVER ENTIRE BODY ECZEMA DEPRESSION HTN SPECT NEUCLEAR STRESS TEST 07/2017 [facility] MY RISK GENETIC TEST NEGATIVE FOR MUTATION 2017 BUT POSITIVE FOR UNCERTAIN VARIANT IN THE SMAD4 GENE LIFETIME BREAST CANCER RISK BY SANDIE LUNDBERG IS 8.5 %- FAMILY HISTORY ARTHIRIS MULTPY SITE CHICKEN POX ALLERGIES LATEX (FOR ALLERGY USE ONLY): DYSPNEA - ALLERGY PERCOCET: N/V RASH - ALLERGY TOPAMAX: NAUSEA/VOMITING - SIDE EFFECTS TAPE: LINDER SKIN - SIDE EFFECTS SULFA: THROAT SWELLING - SIDE EFFECTS LISINOPRIL: COUGH - SIDE EFFECTS INFLECTRA: ANAPHYLAXIS - ALLERGY ACTEMRA: ANAPHYLAXIS - ALLERGY REMICADE: HIVES - SIDE EFFECTS XELJANZ: DIARRHEA, WEIGHT LOSS - SIDE EFFECTS MELOXICAM: UPSET STOMACH - ALLERGY GABAPENTIN: SIDE EFFECTS OF CONFUSION - SIDE EFFECTS OLUMIANT: NAUSEA/VOMITING - SIDE EFFECTS SOCIAL HISTORY GENERAL: TOBACCO USE ARE YOU A:CURRENT SMOKER ARE YOU INTERESTED IN QUITTING?NOT READY TO QUIT COUNSELED THE PATIENT ON SMOKING EFFECTS, EDUCATION IGRPURPW92/16/2021 HOW MANY CIGARETTES A DAY DO YOU SMOKE?6-10 HOW SOON AFTER YOU WAKE UP DO YOU SMOKE YOUR FIRST CIGARETTE?6-30 MIN HOW OFTEN DO YOU SMOKE CIGARETTES?EVERY DAY PATIENT COUNSELED ON THE DANGERS OF TOBACCO USE AND URGED TO QUIT:04/30/2021 SMOKING CESSATION INFORMATION GIVEN11/22/2019 VAPORNO E-CIGARETTENO LATEX QUESTIONNAIRE LATEX ALLERGY : HAVE YOU EVER DEVELOPED ANY TYPE OF REACTION AFTER HANDLING LATEX PRODUCTS SUCH RUBBER GLOVES, CONDOMS, DIAPHRAGMS, BALLOONS, SOCKS, OR UNDERWEAR?YES - PLEASE INDICATE :RUBBER GLOVES, CONDOMS, BALLOONS, DIAPHRAGMS, SOCKS, UNDERWEAR LATEX ALLERGY : HAVE YOU EVER DEVELOPED ANY TYPE OF REACTION DURING OR AFTER DENTAL APPOINTMENT, VAGINAL/RECTAL EXAMINATION, SURGICAL PROCEDURE, OR ANY OTHER EXPOSURE?NO LATEX RISK : HAVE YOU EVER HAD ANY DIFFICULTY BREATHING OR HIVES AFTER EATING OR HANDLING ANY FRUITS, OR VEGETABLES; SUCH KIWI, BANANAS, STONE FRUITS, OR CHESTNUTSYES LATEX RISK : DO YOU HAVE A PREVIOUS PERSONAL HISTORY OF MORE THAN NINE SURGERIES, SPINA BIFIDA, OR REPEATED CATHERIZATIONS? NO LATEX RISK : ARE YOU FREQUENTLY EXPOSED TO LATEX PRODUCTS IN YOUR OCCUPATION?NO DATE ASKED : 04/30/2021 ALCOHOL USE: YES, VERY RARELY. LUNG CANCER SCREENING SMOKING STATUS:CURRENT SMOKER IS THE PATIENT BETWEEN THE AGE OF 53 AND 75?NO BMI CARE GOAL FOLLOW-UP ABOVE NORMAL BMI FOLLOW-UPEXERCISE PROMOTION: STRETCHING ALCOHOL SCREENING DID YOU HAVE A DRINK CONTAINING ALCOHOL IN THE PAST YEAR?YES HOW OFTEN DID YOU HAVE A DRINK CONTAINING ALCOHOL IN THE PAST YEAR?MONTHLY OR LESS (1 POINT) HOW MANY DRINKS DID YOU HAVE ON A TYPICAL DAY WHEN YOU WERE DRINKING IN THE PAST YEAR?1 OR 2 (0 POINTS) HOW OFTEN DID YOU HAVE SIX OR MORE DRINKS ON ONE OCCASION IN THE PAST YEAR?NEVER (0 POINTS) POINTS1 INTERPRETATIONNEGATIVE RECREATIONAL DRUG USE DRUG USE?NO CAFFEINE CAFFEINE USE?YES 1 CUP DAILY SEXUAL HX HAD SEX IN THE LAST 12 MONTHS (VAGINAL, ORAL, OR ANAL)?YES WITHMEN ONLY USE PROTECTION?NO HAVE YOU EVER HAD AN STD?NO LMP:11/18/2017 HIV / HEP-C SCREENING HIV TEST OFFERED TO PATIENT:YES DATE OFFERED:08/24/2018 TEST ACCEPTED:NO HIV TEST DURING REASON:PATIENT DECLINED BROCHURE PROVIDED TO PATIENTNO HEP-C TEST OFFERED TO PATIENT:YES BORN 1985 DATE OFFERED:08/24/2018 TEST ACCEPTED:NO REASON:PATIENT DECLINED SHINTO [id number] [employer] LANGUAGE ARGENTINE. 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 EXERCISE: PHYSICAL JOB. MARITAL STATUS: . OTHERS AT HOME: SPOUSE, CHILD, 1 DOG. VITAL SIGNS WT 152.6 LBS, WT-KG 69.22 KG, HT 64 IN, BMI 26.19 INDEX, BP 120/74 MM HG, HR 76 /MIN, RR 18 /MIN, TEMP 97.2 F, OXYGEN SAT % 98%, SAFE IN ENV? (Y/N) YES, NA INITIALS SC 14:13, REVIEWED BY: APA. KEO RN. EXAMINATION GENERAL: THE PATIENT IS ALERT, ORIENTED TIMES THREE AND COOPERATIVE. LUNGS ARE CLEAR TO AUSCULTATION. HEART SHOWS REGULAR RHYTHM, NO MURMURS AND NO GALLOPS. ASSESSMENTS LUMBOSACRAL SPONDYLOSIS WITHOUT MYELOPATHY - M47.817 (PRIMARY) SPONDYLOSIS WITHOUT MYELOPATHY OR RADICULOPATHY, LUMBAR REGION - M47.816 TREATMENT LUMBOSACRAL SPONDYLOSIS WITHOUT MYELOPATHY [facility] FACET BLOCK (PAIN)[id number] SALINE [id number],IRASEMA R 04/30/2021 5:16:49 PM > 22G INSERTED INTO LEFT AC ON 2ND ATTEMPT. BLOOD RETURN PRESENT, FLUSHING WELL. LINDSEYAS,IRASEMA R 04/30/2021 6:25:30 PM > IV SITE DISCONTINUED, CATHETER TIP INTACT, BLEEDING CONTROLLED DSD APPLIED. PROCEDURES PAIN NURSING RECORD PROCEDURE IN ROOM 1719, PHYSICIAN IN ROOM 1754, START 1759, FINISH 1809, PHYSICIAN OUT OF ROOM 1811, OUT OF ROOM 1815, ECG OTHER SINUS BRADYCARDIA, PATIENT SHIELDED YES, SAFETY STRAP YES, PREP CHLOROPREP Carmelita MELARA RN, DRESSING TEGADERM DR. LAM LOC: PETRAS,IRASEMA R 04/30/2021 6:00:10 PM > , 1. ALERT, ORIENTED RESP: PETRAS,IRASEMA R 04/30/2021 6:00:17 PM > , 1. REGULAR, NO DYSPNEA COLOR: TOMAS CROWLEYIL R 04/30/2021 6:00:20 PM > , 1. PINK SKIN: TOMAS CROWLEYIL R 04/30/2021 6:00:23 PM > , 1. WARM, DRY POSITION: PETRBRANDON YINIRASEMA R 04/30/2021 6:00:26 PM > , 1. PRONE VITALS: PETRHUMPHREYIRASEMA R 04/30/2021 5:21:39 PM > 123/58, 77, 18, 98% PETRAS,IRASEMA R 04/30/2021 5:36:53 PM > 115/72, 55, 16, 97% PETRAS,IRASEMA R 04/30/2021 5:52:41 PM > 125/83, 71, 20. 97% PETRAS,IRASEMA R 04/30/2021 6:06:40 PM >130/87, 75, 18, 98% PETRAS,IRASEMA R 04/30/2021 6:11:54 PM > 128/82, 66, 16, 98% , PETRAS,IRASEMA R 04/30/2021 6:20:35 PM > 136/82, 73, 18, 98% NOTES FLOURO TIME 59 SECONDS. COMPLETION OF PROCEDURE APPOINTMENT: POST PAIN 5, DRESSING SITE DRY AND INTACT, IV DISCONTINUED, SITE CLEAR, CATHETER INTACT, GAIT STEADY, TEACHING COMPLETED, PATIENT ACKNOWLEDGES UNDERSTANDING YES, PROCEDURE APPOINTMENT COMPLETED AT 1824 BY: Christine CROWLEY RN PN LUMBAR FACET BLOCK DIAGNOSTIC PRE PROCEDURE DIAGNOSIS LUMBAR SPONDYLOSIS, LUMBOSACRAL SPONDYLOSIS POST PROCEDURE DIAGNOSIS LUMBAR SPONDYLOSIS, LUMBOSACRAL SPONDYLOSIS PROCEDURE BILATERAL L4-L5 AND BILATERAL L5-S1 FACET BLOCK DIAGNOSTIC NUMBER [address] MINA LAM ANESTHESIOLOGY TEACHER NONE ANESTHESIA LOCAL PRE PROCEDURE NOTE THE PATIENT WITH HISTORY OF CHRONIC LOW BACK PAIN. I EVALUATED THE PATIENT AND REVIEWED THE CHART. I WENT OVER THE RISKS, ALTERNATIVES, AND BENEFITS ASSOCIATED WITH THIS PROCEDURE. THE PATIENT WOULD LIKE TO PROCEED AND GAVE CONSENT TO PERFORM THE PROCEDURE. AGREED WITH THE PATIENT, WE ARE DOING THIS PROCEDURE TO DETERMINE IF THE PATIENT IS A CANDIDATE FOR A RADIOFREQUENCY ABLATION OF THE FACETS JOINTS. THE PATIENT DENIES UNEXPLAINABLE WEIGHT LOSS, FEVER, CHILLS, OR NEW CHANGES IN URINARY OR BOWEL CONTROL. THE PATIENT IS COVID-19 NEGATIVE DESCRIPTION OF PROCEDURE THE PATIENT WAS BROUGHT TO THE PROCEDURE ROOM AND PLACED IN THE PRONE POSITION. THE LUMBOSACRAL AREA WAS CLEANED WITH CHLORAPREP SOLUTION AND DRAPED ASEPTICALLY. THE PROCEDURE WAS DONE UNDER STERILE CONDITIONS. A TIMEOUT WAS PERFORMED WHERE THE CONSENTED SITE WAS VERIFIED WITH EVERYONE IN THE ROOM. UNDER FLUOROSCOPIC GUIDANCE, TARGETS WERE SELECTED AT THE INTERSECTION OF THE RIGHT AND LEFT TRANSVERSE PROCESS OF L4, L5 AND ALA OF S1 WITH ITS RESPECTIVE SUPERIOR ARTICULAR PROCESS WITH A TARGET OF THE MEDIAN BRANCHES OF L3, L4 AND THE DORSAL RAMI OF L5. I CONFIRMED AGAIN THE SITE OF TARGET. LIDOCAINE WAS USED TO NUMB THE SKIN AND THE SUBCUTANEOUS TISSUE BELOW IT. SPINAL NEEDLE, 22-GAUGE, WAS ADVANCED UNDER FLUOROSCOPIC GUIDANCE AND FOLLOWING PATIENT FEEDBACK UNTIL THE TARGETS WERE REACHED. POSITION OF THE NEEDLES WAS VERIFIED WITH AP AND LATERAL VIEWS. AFTER PROPER POSITION OF THE NEEDLES WAS ACHIEVED, ISOVUE-M DYE 30%, 0.1 ML, WAS INJECTED AT EACH SITE SHOWING ADEQUATE SPREAD OF THE DYE. THEN, A SOLUTION OF 0.4 ML OF BUPIVACAINE 0.25% WAS INJECTED AT EACH SITE. THE MEDICATIONS WERE VERIFIED WITH THE NURSE. THERE WAS NO EVIDENCE OF BLOOD, PARESTHESIA OR CEREBROSPINAL FLUID DURING THE PROCEDURE. THE PATIENT WAS SENT TO THE RECOVERY ROOM. THE PATIENT WAS MOVING THE EXTREMITIES AND DOING WELL. THERE WERE NO COMPLICATIONS DURING THE PROCEDURE. ESTIMATED BLOOD LOSS WAS LESS THAN 5 ML. FLUOROSCOPY TIME WAS 59 SECONDS POST PROCEDURE NOTE THE PATIENT WILL DOCUMENT THE PAIN LEVEL AND RESPONSE TO THIS PROCEDURE PER PAIN DIARY. THE PATIENT WILL BE SEEN IN A FOLLOW UP IN THE NEXT FEW WEEKS. FURTHER DETERMINATION FOR THE PATIENT'S CASE WILL BE DONE AT THE NEXT VISIT. INSTRUCTIONS WERE GIVEN, QUESTIONS WERE ANSWERED, AND THE PATIENT EXPRESSED UNDERSTANDING AND AGREED WITH THE PLAN. I, AKIRA BHAT, DOCUMENTED THE ABOVE INFORMATION ACTING A SCRIBE FOR DR. LAM. I HAVE REVIEWED THE ABOVE DOCUMENT, WRITTEN BY AKIRA BHAT, CHIEF COMMERCIAL OFFICER, AND I VERIFY THAT IT IS ACCURATE VISIT CODES PROCEDURE CODES 49608 INJ PARAVERT F JNT L/S 1 LEV, MODIFIERS: 50 [id number] INJ PARAVERT F JNT L/S 2 LEV, MODIFIERS: 50 DISPOSITION & COMMUNICATION FOLLOW UP FOLLOW UP WITH RECREATION COORDINATOR (REASON: POST BILATERAL DIAGNOSTIC LUMBAR FACET BLOCK L4-L5, L5-S1 #1) ELECTRONICALLY SIGNED BY MINA LAM MD, MD ON 05/03/2021 AT 02:11 PM EDT DISCLAIMER : THIS IS A VISIT SUMMARY EXTRACTED FROM THE [employer] CHART. IT IS NOT A COPY OF THE [employer] PROGRESS NOTE. JEN
== END ==
LOC: M PAIN 14:20
PROVIDERS: ATTEND Anesthesiology
DX: M47.817 Spondylosis without myelopathy or radiculopathy, lumbosacral region (principal); M47.816 Spondylosis without myelopathy or radiculopathy, lumbar region; J45.909 Unspecified asthma, uncomplicated; G43.909 Migraine, unspecified, not intractable, without status migrainosus; F17.210 Nicotine dependence, cigarettes, uncomplicated; Z86.59 Personal history of other mental and behavioral disorders; Z88.2 Allergy status to sulfonamides; Z88.5 Allergy status to narcotic agent; Z88.6 Allergy status to analgesic agent; Z88.8 Allergy status to other drugs, medicaments and biological substances; Z91.040 Latex allergy status; Z91.09 Other allergy status, other than to drugs and biological substances; Z79.899 Other long term (current) drug therapy
CPT/HCPCS: 64493; 64494; Q9967

== ENCOUNTER → 2021-05-02 | Outpatient (CLI) | payer BC ==
[~2021-05-02] MED LIST changes: -BUPIVACAINE HCL 0.25% 30ML VIAL As Ordered ONE; -ISOVUE-M 300 61% 15ML VIAL As Ordered ONE; -LIDOCAINE 1% SDV 30ML VIAL As Ordered ONE
== END ==
LOC: M PAIN 09:45
PROVIDERS: ATTEND Anesthesiology
DX: M47.816 Spondylosis without myelopathy or radiculopathy, lumbar region (principal); G89.29 Other chronic pain; J45.909 Unspecified asthma, uncomplicated; G43.909 Migraine, unspecified, not intractable, without status migrainosus; F17.210 Nicotine dependence, cigarettes, uncomplicated; Z88.2 Allergy status to sulfonamides; Z88.5 Allergy status to narcotic agent; Z88.8 Allergy status to other drugs, medicaments and biological substances; Z91.040 Latex allergy status; Z79.899 Other long term (current) drug therapy

== ENCOUNTER → 2021-05-30 | Outpatient (CLI) | payer BC | LOC: M LABSMTC 11:50 | PROVIDERS: ATTEND Anesthesiology | DX: Z01.812 Encounter for preprocedural laboratory examination (principal); Z20.822 Contact with and (suspected) exposure to COVID-19 ==

== ENCOUNTER → 2021-06-03 | Outpatient (CLI) | payer BC ==
[~2021-06-03] MED LIST changes: +BUPIVACAINE HCL 0.25% 30ML VIAL As Ordered ONE; +ISOVUE-M 300 61% 15ML VIAL As Ordered ONE; +LIDOCAINE 1% SDV 30ML VIAL As Ordered ONE
--- NOTE | 2021-06-03 12:29 | REP ---
INDICATION: BILATERAL DIAGNOSTIC #2. COMPARISON: 04/30/2021. TECHNIQUE: Three C-arm views lower lumbar spine. FINDINGS: [place] are seen along the lower lumbar facet joints bilaterally. A small amount of contrast is injected. IMPRESSION: 44 seconds fluoroscopy time utilized. <Electronically signed by Cecil Galarza > 06/03/21 [id number]
== END ==
LOC: M PAIN 11:00
PROVIDERS: ATTEND Anesthesiology
DX: M47.817 Spondylosis without myelopathy or radiculopathy, lumbosacral region (principal); M47.816 Spondylosis without myelopathy or radiculopathy, lumbar region; G43.909 Migraine, unspecified, not intractable, without status migrainosus; Z79.899 Other long term (current) drug therapy; F17.210 Nicotine dependence, cigarettes, uncomplicated; Z91.040 Latex allergy status; Z88.5 Allergy status to narcotic agent; Z88.2 Allergy status to sulfonamides; Z88.6 Allergy status to analgesic agent; Z88.8 Allergy status to other drugs, medicaments and biological substances
CPT/HCPCS: 64493; 64494; Q9967

== ENCOUNTER → 2021-06-06 | Outpatient (CLI) | payer BC ==
[~2021-06-06] MED LIST changes: -BUPIVACAINE HCL 0.25% 30ML VIAL As Ordered ONE; -ISOVUE-M 300 61% 15ML VIAL As Ordered ONE; -LIDOCAINE 1% SDV 30ML VIAL As Ordered ONE
== END ==
LOC: M PAIN 09:00
PROVIDERS: ATTEND Anesthesiology
DX: G89.29 Other chronic pain (principal); M47.816 Spondylosis without myelopathy or radiculopathy, lumbar region; I10 Essential (primary) hypertension; F17.210 Nicotine dependence, cigarettes, uncomplicated; G43.909 Migraine, unspecified, not intractable, without status migrainosus; Z79.899 Other long term (current) drug therapy; Z91.040 Latex allergy status; Z88.5 Allergy status to narcotic agent; Z88.2 Allergy status to sulfonamides; Z88.6 Allergy status to analgesic agent; Z88.8 Allergy status to other drugs, medicaments and biological substances

== ENCOUNTER → 2021-07-01 | Outpatient (REF) | LOC: M EMP 08:22 | PROVIDERS: ATTEND Family Medicine | DX: Z20.828 Contact with and (suspected) exposure to other viral communicable diseases (principal) ==

== ENCOUNTER → 2021-07-04 | Outpatient (CLI) | payer BC | LOC: M LABSMTC 11:47 | PROVIDERS: ATTEND Anesthesiology | DX: Z01.812 Encounter for preprocedural laboratory examination (principal); Z20.822 Contact with and (suspected) exposure to COVID-19 ==

== ENCOUNTER → 2021-07-09 | Outpatient (CLI) | payer BC ==
[~2021-07-09] MED LIST changes: +BUPIVACAINE HCL 0.25% 30ML VIAL As Ordered ONE; +LIDOCAINE 1% SDV 30ML VIAL As Ordered ONE; +NORCO, ANEXSIA 5/325MG TABLET (HYDROcodone/ACETAMINOPHEN) As Ordered ONE; +dexameTHASONE 10MG/1ML VIAL PRES.FREE (J1100 PER 1MG) As Ordered ONE; +diazePAM 5MG TABLET As Ordered ONE
--- NOTE | 2021-07-09 15:49 | REP ---
INDICATION: RIGHT COOL RADIOFREQUENCY L4-L5, L5-S1. COMPARISON: None. TECHNIQUE: Multiple C-arm views lower lumbar spine. FINDINGS: [place] are seen along the margins of the lower lumbar spine. IMPRESSION: 57 seconds of fluoroscopy time is utilized. <Electronically signed by Cecil Galarza > 07/09/21 2230
== END ==
LOC: M PAIN 13:00
PROVIDERS: ATTEND Anesthesiology
DX: M47.816 Spondylosis without myelopathy or radiculopathy, lumbar region (principal); J45.909 Unspecified asthma, uncomplicated; G43.909 Migraine, unspecified, not intractable, without status migrainosus; F17.210 Nicotine dependence, cigarettes, uncomplicated; Z86.59 Personal history of other mental and behavioral disorders; Z88.2 Allergy status to sulfonamides; Z88.5 Allergy status to narcotic agent; Z88.8 Allergy status to other drugs, medicaments and biological substances; Z91.040 Latex allergy status; Z91.09 Other allergy status, other than to drugs and biological substances; Z79.899 Other long term (current) drug therapy
CPT/HCPCS: 64635; 64636; J1100

== ENCOUNTER → 2021-07-18 | Outpatient (CLI) | payer BC ==
[~2021-07-18] MED LIST changes: -BUPIVACAINE HCL 0.25% 30ML VIAL As Ordered ONE; -LIDOCAINE 1% SDV 30ML VIAL As Ordered ONE; -NORCO, ANEXSIA 5/325MG TABLET (HYDROcodone/ACETAMINOPHEN) As Ordered ONE; -dexameTHASONE 10MG/1ML VIAL PRES.FREE (J1100 PER 1MG) As Ordered ONE; -diazePAM 5MG TABLET As Ordered ONE
== END ==
LOC: M PAIN 16:30
PROVIDERS: ATTEND Anesthesiology
DX: M47.816 Spondylosis without myelopathy or radiculopathy, lumbar region (principal); F17.210 Nicotine dependence, cigarettes, uncomplicated

== ENCOUNTER → 2021-07-25 | Outpatient (CLI) | payer BC | LOC: M PAIN 16:30 | PROVIDERS: ATTEND Anesthesiology | DX: M47.816 Spondylosis without myelopathy or radiculopathy, lumbar region (principal); G89.29 Other chronic pain; J45.909 Unspecified asthma, uncomplicated; G43.909 Migraine, unspecified, not intractable, without status migrainosus; F17.210 Nicotine dependence, cigarettes, uncomplicated; Z86.59 Personal history of other mental and behavioral disorders; Z88.2 Allergy status to sulfonamides; Z88.5 Allergy status to narcotic agent; Z88.8 Allergy status to other drugs, medicaments and biological substances; Z91.040 Latex allergy status; Z79.899 Other long term (current) drug therapy ==

== ENCOUNTER → 2021-09-05 | Outpatient (CLI) | payer BC ==
[~2021-09-05] MED LIST changes: +LOSA50TA28 PO; -LOSA50TA88 PO
== END ==
LOC: M RAD 06:45
PROVIDERS: ATTEND Family Medicine
DX: I10 Essential (primary) hypertension (principal); N32.89 Other specified disorders of bladder

== ENCOUNTER 2021-09-12 14:52 | Outpatient (CLI) | payer BC ==
[~2021-09-12] VITALS: Ht 162.6 cm; Wt 70.4 kg
[~2021-09-12 14:52] MED LIST changes: +ALBUTEROL 90 MCG/ACT 8GM HFA INHALER INH PRN; +ALBUTEROL SULFATE 2.5 MG/0.5 ML INH NEB SOLN INH PRN; +EPINEPHrine INJ 1 MG/ML 1ML AMP IM PRN; +LOSA50TA28 PO; -LOSA50TA88 PO; +NS 1,000 ML IV SCH; +diphenhydrAMINE 50MG/ML VIAL (J1200) IV PRN; +methylPREDNISolone 125MG 2ML VIAL IV PRN
[2021-09-12 14:55] VITALS: BP 133/91
[2021-09-12] MEDS ORDERED: CASIRIVIMAB/IMDEVIMAB 1,200 MG in NS 250 ML IV ONE (16:00)
[2021-09-12 16:15] VITALS: BP 135/84
[2021-09-12 17:00] VITALS: BP 152/99
[2021-09-12 17:30] VITALS: BP 155/88
== END 2021-09-12 17:30 | disposition home or self-care (01) ==
LOC: M INFU 14:52
PROVIDERS: ATTEND Physician Assistant Medical
DX: Z20.822 Contact with and (suspected) exposure to COVID-19 (principal); M06.9 Rheumatoid arthritis, unspecified; Z88.8 Allergy status to other drugs, medicaments and biological substances; Z88.2 Allergy status to sulfonamides

== ENCOUNTER → 2021-09-12 | Outpatient (REF) ==
[~2021-09-12] MED LIST changes: -LOSA50TA28 PO; +LOSA50TA88 PO
== END ==
LOC: M EMP 11:08
PROVIDERS: ATTEND Family Medicine
DX: Z20.828 Contact with and (suspected) exposure to other viral communicable diseases (principal)

== ENCOUNTER → 2021-09-17 | Outpatient (REF) ==
[~2021-09-17] MED LIST changes: -ALBUTEROL 90 MCG/ACT 8GM HFA INHALER INH PRN; -ALBUTEROL SULFATE 2.5 MG/0.5 ML INH NEB SOLN INH PRN; -EPINEPHrine INJ 1 MG/ML 1ML AMP IM PRN; -NS 1,000 ML IV SCH; -diphenhydrAMINE 50MG/ML VIAL (J1200) IV PRN; -methylPREDNISolone 125MG 2ML VIAL IV PRN
== END ==
LOC: M EMP 09:19
PROVIDERS: ATTEND Family Medicine
DX: Z20.822 Contact with and (suspected) exposure to COVID-19 (principal)

== ENCOUNTER → 2021-09-26 | Outpatient (CLI) | payer BC ==
[~2021-09-26] MED LIST changes: -LOSA50TA28 PO; +LOSA50TA88 PO
[2021-09-26 08:51] LABS: BASO # 0.1 10^3/uL (0.0-0.2); BASO % 0.5 % (0.0-1.0); EOS # 0.1 10^3/uL (0.0-0.5); HEMATOCRIT 42.7 % (36.0-47.0); HEMOGLOBIN 15.2 g/dl (12.0-15.5); LYMPH # 1.9 10^3/uL (1.5-5.0); LYMPH % 18.6 % (24.0-44.0); MEAN CORPUSCULAR HEMOGLOBIN 35.5 pg (27.0-33.0); MEAN CORPUSCULAR HGB CONC 35.6 g/dl (32.0-36.5); MEAN CORPUSCULAR VOLUME 99.8 fl (80.0-96.0); MONO # 0.6 10^3/uL (0.0-0.8); MONO % 5.7 % (2.0-8.0); NEUTROPHILS # 7.5 10^3/uL (1.5-8.5); NEUTROPHILS % 73.9 % (36.0-66.0); PLATELET COUNT, AUTOMATED 256 10^3/uL (150-450); RED BLOOD COUNT 4.28 10^6/uL (4.00-5.40); WHITE BLOOD COUNT 10.1 10^3/uL (4.0-10.0)
[2021-09-26 08:56] LABS: HEMATOCRIT 42.2 % (36.0-47.0)
[2021-09-26 09:21] LABS: HEMOGLOBIN A1c 4.9 %
[2021-09-26 09:27] LABS: ALBUMIN 4.1 GM/DL (3.2-5.2); BLOOD UREA NITROGEN 11 MG/DL (7-18); CALCIUM LEVEL 9.5 MG/DL (8.5-10.1); CARBON DIOXIDE LEVEL 30 MEQ/L (21-32); CHLORIDE LEVEL 100 MEQ/L (98-107); CHOLESTEROL LEVEL 264 MG/DL (<200); CHOLESTEROL RISK RATIO 2.693 (<5); CREATININE FOR GFR 0.74 MG/DL (0.55-1.30); FERRITIN 492 NG/ML (8-252); FREE T4 1.03 NG/DL (0.76-1.46); GLOMERULAR FILTRATION RATE > 60.0 (>60); GLUCOSE, FASTING 106 MG/DL (70-100); HDL CHOLESTEROL 98 MG/DL (>40); LDL CHOLESTEROL 147 MG/DL (<100); NON-HDL-C 166 MG/DL; POTASSIUM SERUM 3.6 MEQ/L (3.5-5.1); SODIUM LEVEL 136 MEQ/L (136-145); THYROID STIMULATING HORMONE 0.977 uIU/ML (0.358-3.740); TOTAL PROTEIN 7.5 GM/DL (6.4-8.2); TRIGLYCERIDES LEVEL 96 MG/DL (<150)
[2021-09-26 10:46] LABS: THYROID PEROXIDASE ANTIBODY 36.7 U/ML (<60.0); TOTAL 25(OH) VITAMIN D 10.5 NG/ML (30.0-100.0)
[2021-09-26 10:47] LABS: VITAMIN B12 LEVEL 656 PG/ML (247-911)
[2021-09-27 11:33] LABS: ALBUMIN 4.58 GM/DL (3.29-5.55); ALBUMIN % 61.1 % (55.8-66.1); ALPHA-1-GLOBULIN % 4.5 % (2.9-4.9); ALPHA-1-GLOBULINS 0.34 GM/DL (0.17-0.41); ALPHA-2-GLOBULINS 0.74 GM/DL (0.42-0.99); ALPHA-2-GLOBULINS % 9.9 % (7.1-11.8); BETA-1-GLOBULINS 0.49 GM/DL (0.28-0.60); BETA-1-GLOBULINS % 6.5 % (4.7-7.2); BETA-2-GLOBULINS 0.38 GM/DL (0.19-0.55); BETA-2-GLOBULINS % 5.1 % (3.2-6.5); GAMMA GLOBULIN % 12.9 % (11.1-18.8); GAMMA GLOBULINS 0.97 GM/DL (0.65-1.58)
== END ==
LOC: M LAB 07:49
PROVIDERS: ATTEND Family Medicine
DX: D75.89 Other specified diseases of blood and blood-forming organs (principal); E55.9 Vitamin D deficiency, unspecified; I10 Essential (primary) hypertension; E78.2 Mixed hyperlipidemia

== ENCOUNTER → 2021-10-23 | Outpatient (REF) ==
[~2021-10-23] MED LIST changes: +LOSA50TA28 PO; -LOSA50TA88 PO
== END ==
LOC: M LABSMTC 09:56
PROVIDERS: ATTEND Family Medicine
DX: Z11.52 Encounter for screening for COVID-19 (principal)

== ENCOUNTER → 2021-11-25 | Outpatient (CLI) | payer BC | LOC: M WHC 08:44 | PROVIDERS: ATTEND Family Medicine | DX: M85.80 Other specified disorders of bone density and structure, unspecified site (principal) ==

== ENCOUNTER → 2022-03-14 | Outpatient (CLI) | payer BC ==
[~2022-03-14] MED LIST changes: -AZAT50TA2 PO; +AZAT50TA37 PO; +POTA-151 PO
[2022-03-14 09:31] LABS: HEMATOCRIT 37.4 % (36.0-47.0)
[2022-03-14 10:20] LABS: ALBUMIN 3.7 GM/DL (3.2-5.2); ALT/SGPT 34 U/L (12-78); BILIRUBIN,TOTAL 0.7 MG/DL (0.2-1.0); BLOOD UREA NITROGEN 5 MG/DL (7-18); CALCIUM LEVEL 9.5 MG/DL (8.5-10.1); CARBON DIOXIDE LEVEL 32 MEQ/L (21-32); CHLORIDE LEVEL 100 MEQ/L (98-107); CHOLESTEROL LEVEL 184 MG/DL (<200); CHOLESTEROL RISK RATIO 1.688 (<5); CREATININE FOR GFR 0.66 MG/DL (0.55-1.30); GLOMERULAR FILTRATION RATE > 60.0 (>60); GLUCOSE, FASTING 98 MG/DL (70-100); HDL CHOLESTEROL 109 MG/DL (>40); IRON (FE) 120 UG/DL (50-170); LDL CHOLESTEROL 59 MG/DL (<100); NON-HDL-C 75 MG/DL; PERCENT SATURATION 43.5 % (13.2-45.0); SODIUM LEVEL 140 MEQ/L (136-145); TOTAL IRON BINDING CAPACITY 276 UG/DL (250-450); TOTAL PROTEIN 6.8 GM/DL (6.4-8.2); TRIGLYCERIDES LEVEL 79 MG/DL (<150); URIC ACID 5.5 MG/DL (2.6-6.0)
[2022-03-14 11:15] LABS: POTASSIUM SERUM 2.9 MEQ/L (3.5-5.1); PTH INTACT 52.9 PG/ML (18.5-88.0); TOTAL 25(OH) VITAMIN D 38.6 NG/ML (30.0-100.0)
[2022-03-14 13:33] LABS: MALB URINE SIEMENS 5.8 MG/L; MAU/CREAT RATIO 4.9 MCG/MG (0.0-30.0)
== END ==
LOC: M LAB 08:21
PROVIDERS: ATTEND Family Medicine
DX: E78.2 Mixed hyperlipidemia (principal); E55.9 Vitamin D deficiency, unspecified; E53.8 Deficiency of other specified B group vitamins; N20.0 Calculus of kidney; K76.0 Fatty (change of) liver, not elsewhere classified; R73.01 Impaired fasting glucose

== ENCOUNTER 2022-03-17 15:57 | Emergency (ER) | payer BC ==
[~2022-03-17] VITALS: Ht 160 cm; Wt 62.8 kg
[~2022-03-17 15:57] MED LIST changes: -POTA-151 PO
[2022-03-17 17:47] LABS: BASO # 0.1 10^3/uL (0.0-0.2); BASO % 0.5 % (0.0-1.0); EOS # 0.1 10^3/uL (0.0-0.5); EOS % 0.6 % (0.0-3.0); HEMATOCRIT 36.9 % (36.0-47.0); HEMOGLOBIN 13.1 g/dl (12.0-15.5); LYMPH # 3.4 10^3/uL (1.5-5.0); LYMPH % 27.9 % (24.0-44.0); MEAN CORPUSCULAR HEMOGLOBIN 34.9 pg (27.0-33.0); MEAN CORPUSCULAR HGB CONC 35.5 g/dl (32.0-36.5); MEAN CORPUSCULAR VOLUME 98.4 fl (80.0-96.0); MONO # 0.9 10^3/uL (0.0-0.8); NEUTROPHILS # 7.8 10^3/uL (1.5-8.5); NEUTROPHILS % 63.5 % (36.0-66.0); PLATELET COUNT, AUTOMATED 255 10^3/uL (150-450); RED BLOOD COUNT 3.75 10^6/uL (4.00-5.40); WHITE BLOOD COUNT 12.2 10^3/uL (4.0-10.0)
[2022-03-17 18:04] LABS: CK-MB VALUE MASS < 1.0 NG/ML (<3.6); CPK CREATINE PHOSPHOKINASE 167 U/L (26-192)
[2022-03-17 18:06] LABS: HCG, SERUM QUALITATIVE NEGATIVE (NEGATIVE)
[2022-03-17 18:53] LABS: ALBUMIN 3.7 GM/DL (3.2-5.2); ALT/SGPT 24 U/L (12-78); BILIRUBIN,DIRECT 0.2 MG/DL (0.0-0.2); BILIRUBIN,TOTAL 0.4 MG/DL (0.2-1.0); BLOOD UREA NITROGEN 10 MG/DL (7-18); CALCIUM LEVEL 9.4 MG/DL (8.5-10.1); CARBON DIOXIDE LEVEL 31 MEQ/L (21-32); CHLORIDE LEVEL 103 MEQ/L (98-107); CREATININE FOR GFR 0.66 MG/DL (0.55-1.30); FREE T4 0.95 NG/DL (0.76-1.46); GLOMERULAR FILTRATION RATE > 60.0 (>60); GLUCOSE, FASTING 92 MG/DL (70-100); LIPASE 267 U/L (73-393); MAGNESIUM LEVEL 1.9 MG/DL (1.8-2.4); POTASSIUM SERUM 2.8 MEQ/L (3.5-5.1); SODIUM LEVEL 140 MEQ/L (136-145); TOTAL PROTEIN 6.8 GM/DL (6.4-8.2)
[2022-03-17] MEDS ORDERED: KCL 10MEQ/100ML SWI (KRUN) 10 MEQ in IV 1 EA IV ONE (19:00)
[2022-03-17] MEDS ORDERED: POTASSIUM CHLORIDE 10MEQ SR TABLET PO ONE (19:00)
[2022-03-17] MEDS ORDERED: POTA-151 PO (19:04)
[2022-03-17 19:47] LABS: RSV AMPLIFICATION NEGATIVE (NEGATIVE)
[2022-03-17 21:00] VITALS: BP 151/103
== END 2022-03-17 21:00 | disposition home or self-care (01) ==
LOC: M ED 15:57
DX: E87.6 Hypokalemia (principal); I10 Essential (primary) hypertension; J45.909 Unspecified asthma, uncomplicated; M06.9 Rheumatoid arthritis, unspecified; F17.200 Nicotine dependence, unspecified, uncomplicated; Z79.899 Other long term (current) drug therapy; Z88.2 Allergy status to sulfonamides; Z88.5 Allergy status to narcotic agent; Z88.8 Allergy status to other drugs, medicaments and biological substances; Z91.89 Other specified personal risk factors, not elsewhere classified

== ENCOUNTER → 2022-03-17 | Outpatient (CLI) | payer BC ==
[2022-03-17 14:26] LABS: BLOOD UREA NITROGEN 9 MG/DL (7-18); CALCIUM LEVEL 9.7 MG/DL (8.5-10.1); CARBON DIOXIDE LEVEL 31 MEQ/L (21-32); CHLORIDE LEVEL 104 MEQ/L (98-107); CREATININE FOR GFR 0.67 MG/DL (0.55-1.30); GLOMERULAR FILTRATION RATE > 60.0 (>60); GLUCOSE, FASTING 104 MG/DL (70-100); POTASSIUM SERUM 2.7 MEQ/L (3.5-5.1); SODIUM LEVEL 141 MEQ/L (136-145)
== END ==
LOC: M LAB 11:42
PROVIDERS: ATTEND Family Medicine
DX: E87.6 Hypokalemia (principal)

== ENCOUNTER → 2022-03-19 | Outpatient (REF) | payer BC ==
[~2022-03-19] MED LIST changes: +POTA-151 PO
== END ==
LOC: M SFHCDERM 17:20
PROVIDERS: ATTEND Physician Assistant
DX: D23.0 Other benign neoplasm of skin of lip (principal); D18.01 Hemangioma of skin and subcutaneous tissue

== ENCOUNTER → 2022-03-20 | Outpatient (REF) | payer BC ==
[2022-03-20 10:40] LABS: ALBUMIN 3.6 GM/DL (3.2-5.2); BLOOD UREA NITROGEN 8 MG/DL (7-18); CALCIUM LEVEL 8.7 MG/DL (8.5-10.1); CARBON DIOXIDE LEVEL 31 MEQ/L (21-32); CHLORIDE LEVEL 107 MEQ/L (98-107); CREATININE FOR GFR 0.66 MG/DL (0.55-1.30); GLOMERULAR FILTRATION RATE > 60.0 (>60); GLUCOSE, FASTING 96 MG/DL (70-100); MAGNESIUM LEVEL 1.8 MG/DL (1.8-2.4); NT-PRO BNP 354 PG/ML (<125); PHOSPHORUS LEVEL 2.8 MG/DL (2.5-4.9); POTASSIUM SERUM 3.3 MEQ/L (3.5-5.1); SODIUM LEVEL 142 MEQ/L (136-145)
== END ==
LOC: M LAB REF 09:03
PROVIDERS: ATTEND Family Medicine
DX: I10 Essential (primary) hypertension (principal)

== ENCOUNTER → 2022-04-25 | Outpatient (REF) | LOC: M EMP 12:54 | PROVIDERS: ATTEND Family Medicine | DX: Z11.52 Encounter for screening for COVID-19 (principal) ==

== ENCOUNTER 2022-07-29 09:44 | Emergency (ER) | payer BC ==
[~2022-07-29] VITALS: Ht 160 cm; Wt 62.4 kg
[2022-07-29] MEDS ORDERED: FOLI400T13 (10:04)
[2022-07-29] MEDS ORDERED: ROSU10TA6 (10:04)
[2022-07-29] MEDS ORDERED: TELM1TAB35 (10:04)
[2022-07-29] MEDS ORDERED: OREN250I2 IV (10:04)
[2022-07-29 12:03] LABS: BASO % 0.3 % (0.0-1.0); EOS # 0.1 10^3/uL (0.0-0.5); EOS % 0.5 % (0.0-3.0); HEMATOCRIT 36.9 % (36.0-47.0); HEMOGLOBIN 13.1 g/dl (12.0-15.5); LYMPH # 2.9 10^3/uL (1.5-5.0); LYMPH % 25.1 % (24.0-44.0); MEAN CORPUSCULAR HEMOGLOBIN 35.1 pg (27.0-33.0); MEAN CORPUSCULAR HGB CONC 35.5 g/dl (32.0-36.5); MEAN CORPUSCULAR VOLUME 98.9 fl (80.0-96.0); MONO # 0.7 10^3/uL (0.0-0.8); NEUTROPHILS # 7.9 10^3/uL (1.5-8.5); NEUTROPHILS % 67.8 % (36.0-66.0); PLATELET COUNT, AUTOMATED 224 10^3/uL (150-450); RED BLOOD COUNT 3.73 10^6/uL (4.00-5.40); WHITE BLOOD COUNT 11.6 10^3/uL (4.0-10.0)
[2022-07-29] MEDS ORDERED: ASPIRIN 81 MG CHEW TABLET PO ONE (12:15)
[2022-07-29 12:16] LABS: INR 1.03; PROTHROMBIN TIME 13.7 SECONDS (12.5-14.5)
[2022-07-29] MEDS: NITROGLYCERIN 0.4 MG SUBL TABLET SL PRN ×3 (12:31→12:44)
[2022-07-29 12:44] VITALS: BP 143/91
[2022-07-29 12:55] LABS: ALBUMIN 4.3 GM/DL (3.2-5.2); ALT/SGPT 25 U/L (12-78); BILIRUBIN,DIRECT 0.3 MG/DL (0.0-0.2); BILIRUBIN,TOTAL 0.9 MG/DL (0.2-1.0); BLOOD UREA NITROGEN 7 MG/DL (7-18); CALCIUM LEVEL 8.9 MG/DL (8.5-10.1); CARBON DIOXIDE LEVEL 26 MEQ/L (21-32); CHLORIDE LEVEL 104 MEQ/L (98-107); CREATININE FOR GFR 0.78 MG/DL (0.55-1.30); GLOMERULAR FILTRATION RATE > 60.0 (>60); GLUCOSE, FASTING 93 MG/DL (70-100); LIPASE 206 U/L (73-393); POTASSIUM SERUM 3.6 MEQ/L (3.5-5.1); SODIUM LEVEL 139 MEQ/L (136-145); TOTAL PROTEIN 7.2 GM/DL (6.4-8.2)
[2022-07-29 13:04] LABS: CK-MB VALUE MASS < 1.0 NG/ML (<3.6); CPK CREATINE PHOSPHOKINASE 126 U/L (26-192); MB/CK RELATIVE INDEX 0.79 (< OR =4)
[2022-07-29] MEDS ORDERED: ISOVUE-370 76% 100ML VIAL As Ordered ONE (13:10)
[2022-07-29 14:01] LABS: CK-MB VALUE MASS < 1.0 NG/ML (<3.6); CPK CREATINE PHOSPHOKINASE 106 U/L (26-192); MB/CK RELATIVE INDEX 0.94 (< OR =4)
[2022-07-29 15:57] LABS: CK-MB VALUE MASS < 1.0 NG/ML (<3.6); CPK CREATINE PHOSPHOKINASE 95 U/L (26-192); MB/CK RELATIVE INDEX 1.05 (< OR =4)
[2022-07-29 17:45] VITALS: BP 144/93
== END 2022-07-29 18:10 | disposition home or self-care (01) ==
LOC: M ED 09:44
DX: R07.9 Chest pain, unspecified (principal); R06.02 Shortness of breath; I10 Essential (primary) hypertension; G43.909 Migraine, unspecified, not intractable, without status migrainosus; M06.9 Rheumatoid arthritis, unspecified; K90.0 Celiac disease; L20.9 Atopic dermatitis, unspecified; F17.200 Nicotine dependence, unspecified, uncomplicated; Z88.2 Allergy status to sulfonamides; Z88.8 Allergy status to other drugs, medicaments and biological substances; Z88.5 Allergy status to narcotic agent; Z88.7 Allergy status to serum and vaccine; Z79.899 Other long term (current) drug therapy

== ENCOUNTER 2022-07-30 10:10 | Emergency (ER) | payer BC ==
[~2022-07-30] VITALS: Ht 160 cm; Wt 61.8 kg
[~2022-07-30 10:10] MED LIST changes: +FOLI400T13; +OREN250I2 IV; +ROSU10TA6; +TELM1TAB35
[2022-07-30] MEDS ORDERED: LORazepam 0.5 MG TAB PO STA (13:49)
[2022-07-30 14:51] LABS: BASO # 0.1 10^3/uL (0.0-0.2); BASO % 0.5 % (0.0-1.0); EOS % 0.3 % (0.0-3.0); HEMATOCRIT 37.7 % (36.0-47.0); HEMOGLOBIN 13.1 g/dl (12.0-15.5); LYMPH # 3.4 10^3/uL (1.5-5.0); LYMPH % 23.9 % (24.0-44.0); MEAN CORPUSCULAR HGB CONC 34.7 g/dl (32.0-36.5); MEAN CORPUSCULAR VOLUME 100.8 fl (80.0-96.0); MONO # 0.8 10^3/uL (0.0-0.8); MONO % 5.8 % (2.0-8.0); NEUTROPHILS # 9.9 10^3/uL (1.5-8.5); NEUTROPHILS % 69.3 % (36.0-66.0); PLATELET COUNT, AUTOMATED 217 10^3/uL (150-450); RED BLOOD COUNT 3.74 10^6/uL (4.00-5.40); WHITE BLOOD COUNT 14.3 10^3/uL (4.0-10.0)
[2022-07-30 15:09] LABS: BLOOD UREA NITROGEN 9 MG/DL (7-18); CALCIUM LEVEL 9.1 MG/DL (8.5-10.1); CARBON DIOXIDE LEVEL 27 MEQ/L (21-32); CHLORIDE LEVEL 106 MEQ/L (98-107); GLOMERULAR FILTRATION RATE > 60.0 (>60); GLUCOSE, FASTING 98 MG/DL (70-100); POTASSIUM SERUM 3.8 MEQ/L (3.5-5.1); SODIUM LEVEL 141 MEQ/L (136-145)
[2022-07-30 15:14] LABS: CK-MB VALUE MASS < 1.0 NG/ML (<3.6); CPK CREATINE PHOSPHOKINASE 89 U/L (26-192); MB/CK RELATIVE INDEX 1.12 (< OR =4)
[2022-07-30 16:23] LABS: CK-MB VALUE MASS < 1.0 NG/ML (<3.6); CPK CREATINE PHOSPHOKINASE 158 U/L (26-192); MB/CK RELATIVE INDEX 0.63 (< OR =4)
[2022-07-30 17:00] VITALS: BP 153/92
== END 2022-07-30 17:06 | disposition home or self-care (01) ==
LOC: M ED 10:10
DX: R07.9 Chest pain, unspecified (principal); F41.9 Anxiety disorder, unspecified; I10 Essential (primary) hypertension; E78.5 Hyperlipidemia, unspecified; J45.909 Unspecified asthma, uncomplicated; F17.200 Nicotine dependence, unspecified, uncomplicated; Z82.49 Family history of ischemic heart disease and other diseases of the circulatory system; Z79.899 Other long term (current) drug therapy; Z88.7 Allergy status to serum and vaccine; Z88.2 Allergy status to sulfonamides; Z88.5 Allergy status to narcotic agent; Z88.8 Allergy status to other drugs, medicaments and biological substances; Z91.040 Latex allergy status

== ENCOUNTER → 2022-09-03 | Outpatient (CLI) | payer BC ==
[2022-09-03 10:36] LABS: HEMOGLOBIN A1c 4.5 % (4.0-6.0)
[2022-09-03 11:54] LABS: TOTAL 25(OH) VITAMIN D 19.4 NG/ML (20.0-100.0)
[2022-09-03 11:55] LABS: FOLATE 3.9 NG/ML (>5.4)
[2022-09-03 11:57] LABS: TOTAL PROTEIN 6.5 GM/DL (6.4-8.2)
== END ==
LOC: M LAB 09:03
PROVIDERS: ATTEND Psychiatry & Neurology Neurology
DX: E11.9 Type 2 diabetes mellitus without complications (principal); R25.1 Tremor, unspecified; M62.81 Muscle weakness (generalized)

== ENCOUNTER → 2022-09-10 | Outpatient (REF) | LOC: M EMP 13:14 | PROVIDERS: ATTEND Family Medicine | DX: Z11.52 Encounter for screening for COVID-19 (principal) ==

== ENCOUNTER → 2022-09-16 | Outpatient (REF) | LOC: M LABSMTC 09:54 | PROVIDERS: ATTEND Family Medicine | DX: Z11.52 Encounter for screening for COVID-19 (principal) ==

== ENCOUNTER → 2022-09-29 | Outpatient (CLI) | payer BC ==
[~2022-09-29] MED LIST changes: +PROHANCE 279.3MG/ML 15ML VIAL As Ordered ONE
== END ==
LOC: M RAD 15:38
PROVIDERS: ATTEND Psychiatry & Neurology Neurology
DX: R53.1 Weakness (principal); G25.2 Other specified forms of tremor; G43.009 Migraine without aura, not intractable, without status migrainosus
CPT/HCPCS: 70553; A9576

== ENCOUNTER → 2022-10-06 | Outpatient (REF) ==
[~2022-10-06] MED LIST changes: -PROHANCE 279.3MG/ML 15ML VIAL As Ordered ONE
== END ==
LOC: M EMP 10:03
PROVIDERS: ATTEND Family Medicine
DX: Z11.52 Encounter for screening for COVID-19 (principal)

== ENCOUNTER → 2023-09-13 | Outpatient (REF) ==
[2023-09-13 14:21] LABS: INFLUENZA A AMPLIFICATION NEGATIVE (NEGATIVE); INFLUENZA B AMPLIFICATION NEGATIVE (NEGATIVE)
== END ==
LOC: M EMP 13:43
PROVIDERS: ATTEND Family Medicine
DX: Z11.59 Encounter for screening for other viral diseases (principal)

== ENCOUNTER → 2023-09-13 | Outpatient (REF) | LOC: M EMP 11:06 | PROVIDERS: ATTEND Family Medicine | DX: Z11.52 Encounter for screening for COVID-19 (principal) ==

== ENCOUNTER → 2023-09-15 | Outpatient (REF) | LOC: M EMP 07:42 | PROVIDERS: ATTEND Family Medicine | DX: Z11.52 Encounter for screening for COVID-19 (principal) ==

== ENCOUNTER → 2024-01-21 | Outpatient (REF) | payer BC ==
[~2024-01-21] MED LIST changes: -ROSU10TA6; +ROSU10TA61
== END ==
LOC: M SFHCWAGY 15:03
PROVIDERS: ATTEND Nurse Practitioner Family
DX: Z12.4 Encounter for screening for malignant neoplasm of cervix (principal)
CPT/HCPCS: 87624; G0123

== ENCOUNTER → 2024-01-21 | Outpatient (CLI) | payer BC | LOC: M WHC 11:28 | PROVIDERS: ATTEND Nurse Practitioner Family | DX: Z12.31 Encounter for screening mammogram for malignant neoplasm of breast (principal); Z80.41 Family history of malignant neoplasm of ovary; Z80.49 Family history of malignant neoplasm of other genital organs; R92.333 Mammographic heterogeneous density, bilateral breasts ==

== ENCOUNTER → 2024-04-01 | Outpatient (CLI) | payer BC | LOC: M WHC 10:52 | PROVIDERS: ATTEND Family Medicine | DX: M85.80 Other specified disorders of bone density and structure, unspecified site (principal) ==

== ENCOUNTER → 2024-04-11 | Outpatient (CLI) | payer BC ==
[2024-04-11 07:50] LABS: BASO # 0.1 10^3/uL (0.0-0.2); BASO % 0.8 % (0.0-1.0); EOS # 0.2 10^3/uL (0.0-0.5); EOS % 2.7 % (0.0-3.0); HEMATOCRIT 40.4 % (36.0-47.0); HEMOGLOBIN 14.3 g/dl (12.0-15.5); LYMPH # 1.9 10^3/uL (1.5-5.0); LYMPH % 25.8 % (24.0-44.0); MEAN CORPUSCULAR HEMOGLOBIN 34.5 pg (27.0-33.0); MEAN CORPUSCULAR HGB CONC 35.4 g/dl (32.0-36.5); MEAN CORPUSCULAR VOLUME 97.6 fl (80.0-96.0); MONO # 0.6 10^3/uL (0.0-0.8); MONO % 8.1 % (2.0-8.0); NEUTROPHILS # 4.6 10^3/uL (1.5-8.5); NEUTROPHILS % 62.3 % (36.0-66.0); PLATELET COUNT, AUTOMATED 268 10^3/uL (150-450); RED BLOOD COUNT 4.14 10^6/uL (4.00-5.40); WHITE BLOOD COUNT 7.4 10^3/uL (4.0-10.0)
[2024-04-11 07:50] LABS: HEMATOCRIT 40.5 % (36.0-47.0)
[2024-04-11 08:15] LABS: ALKALINE PHOSPHATASE 47 U/L (46-116); ALT/SGPT 17 U/L (7.0-40); AST/SGOT 8 U/L (<34); BILIRUBIN,TOTAL 0.5 MG/DL (0.3-1.2); BLOOD UREA NITROGEN 10 MG/DL (9-23); CALCIUM LEVEL 9.4 MG/DL (8.5-10.1); CARBON DIOXIDE LEVEL 30 MMOL/L (20-31); CHLORIDE LEVEL 108 MMOL/L (98-107); CHOLESTEROL LEVEL 185 MG/DL (<200); CHOLESTEROL RISK RATIO 3.16 (<5); CREATININE FOR GFR 0.74 MG/DL (0.55-1.30); GLOMERULAR FILTRATION RATE > 60.0 (>58); GLUCOSE, FASTING 93 MG/DL (60-100); HDL CHOLESTEROL 58.5 MG/DL (>40); IRON (FE) 73 UG/DL (50-170); LDL CHOLESTEROL 111.9 MG/DL (<100); NON-HDL-C 126.5 MG/DL; PERCENT SATURATION 24.4 % (13.2-45.0); POTASSIUM SERUM 3.8 MMOL/L (3.5-5.1); SODIUM LEVEL 142 MMOL/L (136-145); TOTAL IRON BINDING CAPACITY 299 UG/DL (250-425); TOTAL PROTEIN 6.7 G/DL (5.7-8.2); TRIGLYCERIDES LEVEL 73 MG/DL (<150)
[2024-04-11 08:17] LABS: FERRITIN 211.3 NG/ML (7.3-270.7); THYROID STIMULATING HORMONE 1.517 uIU/ML (0.55-4.78)
[2024-04-11 08:18] LABS: TOTAL 25(OH) VITAMIN D 32.3 NG/ML (20.0-100.0)
[2024-04-11 09:36] LABS: HEMOGLOBIN A1c 4.9 % (4.0-6.0)
[2024-04-11 10:34] LABS: PTH INTACT 63.6 PG/ML (18.5-88.0)
[2024-04-12 09:16] LABS: INSULIN LEVEL 5.3 uIU/mL (<=18.4)
[2024-04-13 00:37] LABS: TISSUE TRANSGLUTAMINASE IgA < 1.0 U/mL (<15.0)
== END ==
LOC: M LAB 06:56
PROVIDERS: ATTEND Family Medicine
DX: D75.89 Other specified diseases of blood and blood-forming organs (principal); E78.2 Mixed hyperlipidemia; E53.8 Deficiency of other specified B group vitamins; K90.0 Celiac disease; R73.01 Impaired fasting glucose; K76.0 Fatty (change of) liver, not elsewhere classified; E55.9 Vitamin D deficiency, unspecified

== ENCOUNTER 2024-07-20 10:11 | Emergency (ER) | payer BC ==
[~2024-07-20] VITALS: Ht 160 cm; Wt 70.0 kg
[2024-07-20] MEDS ORDERED: RITU10VLL IV (10:22)
[2024-07-20 10:25] VITALS: TEMP 97.8
[2024-07-20 11:08] LABS: BASO # 0.1 10^3/uL (0.0-0.2); BASO % 0.7 % (0.0-1.0); EOS # 0.4 10^3/uL (0.0-0.5); EOS % 3.7 % (0.0-3.0); HEMATOCRIT 40.6 % (36.0-47.0); HEMOGLOBIN 14.6 g/dl (12.0-15.5); LYMPH % 18.7 % (24.0-44.0); MEAN CORPUSCULAR HEMOGLOBIN 34.9 pg (27.0-33.0); MEAN CORPUSCULAR VOLUME 97.1 fl (80.0-96.0); MONO # 0.8 10^3/uL (0.0-0.8); NEUTROPHILS # 7.5 10^3/uL (1.5-8.5); NEUTROPHILS % 69.5 % (36.0-66.0); PLATELET COUNT, AUTOMATED 273 10^3/uL (150-450); RED BLOOD COUNT 4.18 10^6/uL (4.00-5.40); WHITE BLOOD COUNT 10.8 10^3/uL (4.0-10.0)
[2024-07-20] MEDS: LABETALOL 100MG/20ML VIAL IV STA (11:11)
[2024-07-20 11:33] LABS: LIPASE 50 U/L (12-53)
[2024-07-20 11:35] LABS: ALBUMIN 3.9 G/DL (3.2-5.2); ALKALINE PHOSPHATASE 51 U/L (35-104); ALT/SGPT 18 U/L (7.0-40); AST/SGOT 11 U/L (<34); BILIRUBIN,DIRECT 0.2 MG/DL (<0.4); BILIRUBIN,TOTAL 0.9 MG/DL (0.3-1.2); BLOOD UREA NITROGEN 18 MG/DL (9-23); CALCIUM LEVEL 10.1 MG/DL (8.5-10.1); CARBON DIOXIDE LEVEL 30 MMOL/L (20-31); CHLORIDE LEVEL 105 MMOL/L (98-107); CK-MB VALUE MASS < 1.0 NG/ML (<3.6); CREATININE FOR GFR 0.74 MG/DL (0.55-1.30); GLOMERULAR FILTRATION RATE > 60.0 (>58); GLUCOSE, FASTING 92 MG/DL (60-100); POTASSIUM SERUM 3.8 MMOL/L (3.5-5.1); SODIUM LEVEL 138 MMOL/L (136-145); TOTAL PROTEIN 7.2 G/DL (5.7-8.2)
[2024-07-20 11:39] VITALS: BP 178/103
[2024-07-20 11:39] LABS: THYROID STIMULATING HORMONE 1.149 uIU/ML (0.55-4.78)
[2024-07-20] MEDS: hydrALAZINE 20MG/ML 1ML VIAL IV ONE (11:39)
[2024-07-20 11:40] LABS: FREE T4 1.27 NG/DL (0.89-1.76)
[2024-07-20 11:41] LABS: CPK CREATINE PHOSPHOKINASE 83 U/L (34-145)
[2024-07-20] MEDS ORDERED: ISOVUE-370 76% 100ML VIAL As Ordered ONE (11:46)
[2024-07-20 12:36] LABS: CK-MB VALUE MASS < 1.0 NG/ML (<3.6)
[2024-07-20 12:37] LABS: CPK CREATINE PHOSPHOKINASE 76 U/L (34-145); MB/CK RELATIVE INDEX 1.31 (< OR =4)
[2024-07-20] MEDS ORDERED: HOME MED LIST COMPLETE! XX SCH (12:40)
[2024-07-20] MEDS ORDERED: LISI20TA33 PO (13:12)
[2024-07-20] MEDS ORDERED: AMLO1TAB24 PO (13:13)
[2024-07-20 14:10] VITALS: O2SAT 99
[2024-07-20 14:20] VITALS: BP 157/106
== END 2024-07-20 14:27 | disposition home or self-care (01) ==
LOC: M ED 10:11
DX: R07.9 Chest pain, unspecified (principal); I10 Essential (primary) hypertension; E78.5 Hyperlipidemia, unspecified; F17.200 Nicotine dependence, unspecified, uncomplicated; G47.33 Obstructive sleep apnea (adult) (pediatric); Z88.2 Allergy status to sulfonamides; Z88.5 Allergy status to narcotic agent; Z88.8 Allergy status to other drugs, medicaments and biological substances; Z88.7 Allergy status to serum and vaccine; E26.9 Hyperaldosteronism, unspecified; Z79.899 Other long term (current) drug therapy
CPT/HCPCS: 71045; 71275; 80047; 80048; 80076; 82550; 82553; 83690; 83880; 84439; 84443; 84484; 85025; 93005; 93041; 94760; 96374; 96375; 99285; J0360; J1920; Q9967

== ENCOUNTER → 2024-09-13 | Outpatient (REF) ==
[~2024-09-13] MED LIST changes: +AMLO1TAB24 PO; +LISI20TA33 PO; +RITU10VLL IV
== END ==
LOC: M EMP 09:40
PROVIDERS: ATTEND Family Medicine
DX: Z01.89 Encounter for other specified special examinations (principal)

== ENCOUNTER 2024-10-12 05:38 | Emergency (ER) | payer BC ==
[~2024-10-12] VITALS: Ht 160 cm; Wt 72.1 kg
[2024-10-12] MEDS: KETOROLAC 60MG 2ML VIAL IM ONE (07:15)
[2024-10-12] MEDS ORDERED: METH-1164 PO (08:42)
[2024-10-12 08:48] VITALS: BP 176/104; TEMP 97.5; O2SAT 99
== END 2024-10-12 09:01 | disposition home or self-care (01) ==
LOC: M ED 05:38
DX: M79.662 Pain in left lower leg (principal); I10 Essential (primary) hypertension; M06.9 Rheumatoid arthritis, unspecified; K90.0 Celiac disease; Z79.899 Other long term (current) drug therapy; Z88.7 Allergy status to serum and vaccine; Z88.2 Allergy status to sulfonamides; Z88.8 Allergy status to other drugs, medicaments and biological substances; Z88.5 Allergy status to narcotic agent; Z91.89 Other specified personal risk factors, not elsewhere classified; Z91.040 Latex allergy status
CPT/HCPCS: 93971; 96372; 99284; J1885

== ENCOUNTER → 2024-10-13 | Outpatient (CLI) | payer BC ==
[~2024-10-13] MED LIST changes: +METH-1164 PO
[2024-10-13 13:04] LABS: BASO # 0.1 10^3/uL (0.0-0.2); BASO % 0.4 % (0.0-1.0); EOS # 0.4 10^3/uL (0.0-0.5); EOS % 2.3 % (0.0-3.0); HEMATOCRIT 38.3 % (36.0-47.0); HEMOGLOBIN 13.6 g/dl (12.0-15.5); LYMPH # 1.8 10^3/uL (1.5-5.0); LYMPH % 11.8 % (24.0-44.0); MEAN CORPUSCULAR HEMOGLOBIN 35.9 pg (27.0-33.0); MEAN CORPUSCULAR HGB CONC 35.5 g/dl (32.0-36.5); MEAN CORPUSCULAR VOLUME 101.1 fl (80.0-96.0); MONO % 6.5 % (2.0-8.0); NEUTROPHILS # 11.9 10^3/uL (1.5-8.5); NEUTROPHILS % 78.5 % (36.0-66.0); PLATELET COUNT, AUTOMATED 238 10^3/uL (150-450); RED BLOOD COUNT 3.79 10^6/uL (4.00-5.40); WHITE BLOOD COUNT 15.2 10^3/uL (4.0-10.0)
[2024-10-13 13:20] LABS: ERYTHROCYTE SEDIMENTATION RATE 16 mm/hr (0-20)
[2024-10-13 13:36] LABS: ALBUMIN 3.8 G/DL (3.2-5.2); ALKALINE PHOSPHATASE 51 U/L (35-104); ALT/SGPT 13 U/L (7.0-40); AST/SGOT 13 U/L (<34); BILIRUBIN,TOTAL 0.8 MG/DL (0.3-1.2); BLOOD UREA NITROGEN 12 MG/DL (9-23); C REACTIVE PROTEIN QUANTITATIV < 0.50 MG/DL (<1.0); CALCIUM LEVEL 9.2 MG/DL (8.5-10.1); CARBON DIOXIDE LEVEL 26 MMOL/L (20-31); CHLORIDE LEVEL 109 MMOL/L (98-107); CREATININE FOR GFR 0.64 MG/DL (0.55-1.30); GLOMERULAR FILTRATION RATE > 60.0 (>58); GLUCOSE, FASTING 85 MG/DL (60-100); MAGNESIUM LEVEL 1.9 MG/DL (1.8-2.4); POTASSIUM SERUM 4.2 MMOL/L (3.5-5.1); SODIUM LEVEL 140 MMOL/L (136-145); TOTAL PROTEIN 6.9 G/DL (5.7-8.2)
== END ==
LOC: M LAB 12:09
DX: M79.662 Pain in left lower leg (principal)

== ENCOUNTER 2024-10-16 16:45 | Emergency (ER) | payer BC ==
[~2024-10-16] VITALS: Ht 160 cm; Wt 72.4 kg
[2024-10-16 16:47] VITALS: BP 164/90; TEMP 100.2; O2SAT 97
[2024-10-16 17:22] LABS: BASO # 0.1 10^3/uL (0.0-0.2); BASO % 0.6 % (0.0-1.0); EOS # 0.4 10^3/uL (0.0-0.5); EOS % 3.2 % (0.0-3.0); HEMATOCRIT 36.9 % (36.0-47.0); HEMOGLOBIN 13.3 g/dl (12.0-15.5); LYMPH % 17.8 % (24.0-44.0); MEAN CORPUSCULAR HEMOGLOBIN 36.3 pg (27.0-33.0); MEAN CORPUSCULAR VOLUME 100.8 fl (80.0-96.0); MONO # 0.8 10^3/uL (0.0-0.8); MONO % 7.6 % (2.0-8.0); NEUTROPHILS # 7.8 10^3/uL (1.5-8.5); NEUTROPHILS % 70.5 % (36.0-66.0); PLATELET COUNT, AUTOMATED 265 10^3/uL (150-450); RED BLOOD COUNT 3.66 10^6/uL (4.00-5.40); WHITE BLOOD COUNT 11.1 10^3/uL (4.0-10.0)
[2024-10-16 17:30] LABS: ERYTHROCYTE SEDIMENTATION RATE 18 mm/hr (0-20)
[2024-10-16 17:51] LABS: BLOOD UREA NITROGEN 11 MG/DL (9-23); C REACTIVE PROTEIN QUANTITATIV < 0.50 MG/DL (<1.0); CALCIUM LEVEL 9.3 MG/DL (8.5-10.1); CARBON DIOXIDE LEVEL 24 MMOL/L (20-31); CHLORIDE LEVEL 108 MMOL/L (98-107); CREATININE FOR GFR 0.68 MG/DL (0.55-1.30); GLOMERULAR FILTRATION RATE > 60.0 (>58); GLUCOSE, FASTING 93 MG/DL (60-100); POTASSIUM SERUM 3.5 MMOL/L (3.5-5.1); SODIUM LEVEL 140 MMOL/L (136-145)
[2024-10-16 17:53] LABS: HCG, SERUM QUALITATIVE NEGATIVE (NEGATIVE)
[2024-10-16] MEDS ORDERED: CEPH500C PO (20:03)
[2024-10-16] MEDS: CEPHALEXIN 500 MG CAP PO ONE (20:08)
== END 2024-10-16 20:12 | disposition home or self-care (01) ==
LOC: M ED 16:45
DX: L03.116 Cellulitis of left lower limb (principal); I10 Essential (primary) hypertension; M06.9 Rheumatoid arthritis, unspecified; K90.0 Celiac disease; F17.200 Nicotine dependence, unspecified, uncomplicated; Z79.899 Other long term (current) drug therapy; Z88.7 Allergy status to serum and vaccine; Z88.2 Allergy status to sulfonamides; Z88.5 Allergy status to narcotic agent; Z88.8 Allergy status to other drugs, medicaments and biological substances; Z91.89 Other specified personal risk factors, not elsewhere classified; Z91.040 Latex allergy status

== ENCOUNTER → 2025-01-31 | Outpatient (CLI) | payer BC ==
[~2025-01-31] MED LIST changes: +CEPH500C PO
== END ==
LOC: M WHC 08:03
PROVIDERS: ATTEND Nurse Practitioner Family
DX: Z12.31 Encounter for screening mammogram for malignant neoplasm of breast (principal)

== ENCOUNTER → 2025-04-12 | Outpatient (CLI) | payer BC ==
[2025-04-12 07:26] LABS: BASO # 0.1 10^3/uL (0.0-0.2); BASO % 1.0 % (0.0-1.0); EOS # 0.2 10^3/uL (0.0-0.5); EOS % 2.3 % (0.0-3.0); LYMPH # 1.2 10^3/uL (1.5-5.0); LYMPH % 14.7 % (24.0-44.0); MONO # 0.9 10^3/uL (0.0-0.8); MONO % 11.7 % (2.0-8.0); NEUTROPHILS # 5.6 10^3/uL (1.5-8.5); NEUTROPHILS % 70.0 % (36.0-66.0); PLATELET COUNT, AUTOMATED 319 10^3/uL (150-450)
[2025-04-12 07:40] LABS: CREATININE, URINE 222.3 MG/DL; MALB URINE SIEMENS 5.0 MG/L; MAU/CREAT RATIO 2.2 MCG/MG (0.0-30.0)
[2025-04-12 07:41] LABS: ALT/SGPT 32 U/L (7.0-40); AST/SGOT 21 U/L (<34); CALCIUM LEVEL 9.3 MG/DL (8.5-10.1); CARBON DIOXIDE LEVEL 27 MMOL/L (20-31); CHLORIDE LEVEL 105 MMOL/L (98-107); CHOLESTEROL LEVEL 239 MG/DL (<200); CHOLESTEROL RISK RATIO 3.49 (<5); CREATININE FOR GFR 0.81 MG/DL (0.55-1.30); GLOMERULAR FILTRATION RATE > 90.0 (>58); LDL CHOLESTEROL 154.1 MG/DL (<100); MAGNESIUM LEVEL 2.0 MG/DL (1.8-2.4); NON-HDL-C 170.7 MG/DL; POTASSIUM SERUM 4.4 MMOL/L (3.5-5.1); PTH INTACT 67.7 PG/ML (18.5-88.0); SODIUM LEVEL 142 MMOL/L (136-145); TRIGLYCERIDES LEVEL 83 MG/DL (<150)
[2025-04-12 07:44] LABS: TOTAL 25(OH) VITAMIN D 30.8 NG/ML (20.0-100.0)
[2025-04-13 19:21] LABS: PROTEIN, TOTAL SO 6.8 g/dL (6.1-8.1)
== END ==
LOC: M LAB 06:17
PROVIDERS: ATTEND Family Medicine
DX: D75.89 Other specified diseases of blood and blood-forming organs (principal); E55.9 Vitamin D deficiency, unspecified; R73.01 Impaired fasting glucose; I10 Essential (primary) hypertension; E53.8 Deficiency of other specified B group vitamins; E78.2 Mixed hyperlipidemia

== ENCOUNTER → 2025-07-24 | Outpatient (CLI) | payer BC ==
[~2025-07-24] MED LIST changes: -ROSU10TA61; +ROSU10TA90
== END ==
LOC: M LAB 06:33
PROVIDERS: ATTEND Surgery
DX: Z80.3 Family history of malignant neoplasm of breast (principal); Z80.41 Family history of malignant neoplasm of ovary; Z91.89 Other specified personal risk factors, not elsewhere classified

== ENCOUNTER → 2025-07-24 | Outpatient (CLI) | payer BC ==
[2025-07-24 07:37] LABS: BASO # 0.1 10^3/uL (0.0-0.2); BASO % 0.7 % (0.0-1.0); EOS # 0.2 10^3/uL (0.0-0.5); EOS % 2.5 % (0.0-3.0); LYMPH # 1.6 10^3/uL (1.5-5.0); LYMPH % 17.0 % (24.0-44.0); MONO # 0.6 10^3/uL (0.0-0.8); MONO % 6.7 % (2.0-8.0); NEUTROPHILS # 6.8 10^3/uL (1.5-8.5); NEUTROPHILS % 72.8 % (36.0-66.0); PLATELET COUNT, AUTOMATED 296 10^3/uL (150-450)
[2025-07-24 08:10] LABS: ALT/SGPT 17 U/L (7.0-40); AST/SGOT 17 U/L (<34); CALCIUM LEVEL 9.0 MG/DL (8.5-10.1); CARBON DIOXIDE LEVEL 27 MMOL/L (20-31); CHLORIDE LEVEL 109 MMOL/L (98-107); CHOLESTEROL LEVEL 208 MG/DL (<200); CHOLESTEROL RISK RATIO 2.97 (<5); CREATININE FOR GFR 0.72 MG/DL (0.55-1.30); GLOMERULAR FILTRATION RATE > 90.0 (>58); IRON (FE) 82 UG/DL (50-170); LDL CHOLESTEROL 126.9 MG/DL (<100); NON-HDL-C 138.1 MG/DL; PERCENT SATURATION 29.7 % (13.2-45.0); POTASSIUM SERUM 4.3 MMOL/L (3.5-5.1); SODIUM LEVEL 143 MMOL/L (136-145); TRIGLYCERIDES LEVEL 56 MG/DL (<150)
[2025-07-24 08:11] LABS: PTH INTACT 53.4 PG/ML (18.5-88.0)
[2025-07-24 08:13] LABS: TOTAL 25(OH) VITAMIN D 22.9 NG/ML (20.0-100.0); VITAMIN B12 LEVEL 778 PG/ML (211-911)
== END ==
LOC: M LAB 06:32
PROVIDERS: ATTEND Family Medicine
DX: D75.89 Other specified diseases of blood and blood-forming organs (principal); E55.9 Vitamin D deficiency, unspecified; R73.01 Impaired fasting glucose

== ENCOUNTER → 2025-09-04 | Outpatient (CLI) | payer BC ==
[~2025-09-04] MED LIST changes: +PROHANCE 279.3MG/ML 15ML VIAL ONE
== END ==
LOC: M PLAIMG 08:29
PROVIDERS: ATTEND Nurse Practitioner Family
DX: Z12.31 Encounter for screening mammogram for malignant neoplasm of breast (principal); Z80.3 Family history of malignant neoplasm of breast; R92.30 Dense breasts, unspecified
CPT/HCPCS: A9579; C8908